=== PATIENT | female | born 1955 | race Caucasian/White ===

== ENCOUNTER 2021-03-09 12:01 | Emergency (ER) | payer OTHER, SELFPAY ==
--- NOTE | 2021-03-09 12:15 | XR_ITS ---
PROCEDURE: XR FOOT LT MIN 3V CLINICAL INDICATION: blisters COMPARISON: No exams were available for comparison FINDINGS: No fracture or dislocation. No lytic or blastic change. There is normal mineralization. The joint spaces are well-preserved. No significant degenerative/arthritic changes. No erosive changes evident. Diffuse soft tissue swelling along the anterior aspect of the foot. No soft tissue gas or radiopaque foreign body IMPRESSION: Soft tissue swelling otherwise negative Dictated by: Bert Nowak MD 03/09/2021 15:46 Bert Nowak MD in [place] 03/09/2021 15:46
--- NOTE | 2021-03-09 12:15 | XR_ITS ---
PROCEDURE: XR FOOT RT MIN 3V CLINICAL INDICATION: blisters COMPARISON: CR XR FOOT LT MIN 3V from 03/09/2021 FINDINGS: No fracture or dislocation. No lytic or blastic change. There is normal mineralization. The joint spaces are well-preserved. No significant degenerative/arthritic changes. No erosive changes evident. Other findings:diffuse soft tissue swelling along the anterior aspect of the foot. No radiopaque foreign body IMPRESSION: Soft tissue swelling otherwise negative Dictated by: Bert Nowak MD 03/09/2021 15:44 Bert Nowak MD in [place] 03/09/2021 15:44
--- NOTE | 2021-03-09 12:16 | XR_ITS ---
PROCEDURE: XR TIBIA FIBULA LT 2V CLINICAL INDICATION: blisters COMPARISON: No exams were available for comparison FINDINGS: No fracture or dislocation. No lytic or blastic change. There is normal mineralization. The joint spaces are well-preserved. No significant degenerative/arthritic changes. No erosive changes evident. Mild diffuse subcutaneous edema with soft tissue swelling noted at the lateral malleolar region. Overlying artifact along posterior aspect of the tib fib on the lateral view IMPRESSION: Soft tissue swelling otherwise negative Dictated by: Bert Nowak MD 03/09/2021 15:45 Bert Nowak MD in [place] 03/09/2021 15:45
--- NOTE | 2021-03-09 12:16 | XR_ITS ---
PROCEDURE: XR TIBIA FIBULA RT 2V CLINICAL INDICATION: blisters COMPARISON: CR XR TIBIA FIBULA LT 2V from 03/09/2021 FINDINGS: No fracture or dislocation. No lytic or blastic change. There is normal mineralization. Soft tissue swelling and edema noted about the entire tib fib subcutaneous tissues with greater soft tissue swelling at the lateral malleolar region. Vague heart-shaped lucency noted distal to the tip of the lateral malleolus. Etiology is indeterminate not readily apparent on the lateral view. Not typical appearance for soft tissue gas. Please correlate with physical exam. Other findings:None. IMPRESSION: No acute bony finding. Subcutaneous edema with greater soft tissue swelling at the lateral malleolar region and curious heart shaped lucency distal to the tip of the lateral malleolus not typical for soft tissue gas however that entity is not excluded. Please correlate with physical exam. No radiopaque foreign body. Dictated by: Bert Nowak MD 03/09/2021 15:42 Bert Nowak MD in [place] 03/09/2021 15:42
[2021-03-09 12:30] VITALS: BP 147/67; PULSE 85; RESP 18; TEMP 36.5; O2SAT 87; BMI 32.9
[2021-03-09 14:06] LABS: Basophils # 0.1 K/mm3 (0-0.2); Basophils % 0.9 % (0.1-2.0); Eosinophils # 0.1 K/mm3 (0.0-0.4); Eosinophils % 1.4 % (0.1-12.0); Hematocrit 56.2 % (37.0-47.0); Hemoglobin 16.7 g/dL (12.2-16.2); Lymphocytes # 0.9 K/mm3 (0.7-4.5); Lymphocytes % 12.4 % (10-50); Mean Corpuscular HGB Conc 29.8 g/dL (31.8-35.4); Mean Corpuscular Hemoglobin 25.5 pg (27.0-31.2); Mean Corpuscular Volume 85.8 fl (81-99); Mean Platelet Volume 8.3 fl (7.4-10.4); Monocytes # 0.4 K/mm3 (0.1-1.0); Monocytes % 5.6 % (1.7-9.3); Neutrophils # 5.8 K/mm3 (1.8-7.8); Neutrophils % 79.7 % (37.0-80.0); Platelet Count 201 K/mm3 (142-424); Red Blood Count 6.54 M/mm3 (4.20-5.40); Red Cell Distribution Width 16.7 % (11.5-17.5); White Blood Count 7.2 K/mm3 (4.8-10.8)
[2021-03-09 14:12] LABS: Chloride 100 mmol/L (98-107); Potassium 4.5 mmoL/L (3.5-5.1); Sodium 139 mmol/L (136-145)
[2021-03-09 14:15] LABS: Alanine Aminotransferase 27 U/L (12-78); Albumin Level 3.2 g/dl (3.5-5.0); Albumin/Globulin Ratio 1.2 (1.1-1.8); Alkaline Phosphatase 106 U/L (38-126); Aspartate Amino Transferase 72 U/L (14-36); Bilirubin,Total 0.8 mg/dl (0.2-1.3); Blood Urea Nitrogen 10 mg/dl (7-17); Calcium 8.8 mg/dl (8.4-10.2); Carbon Dioxide 39 mmol/L (22.0-30.0); Creatinine Clearance Estimated 74 mL/min (50-200); Estimated Glomerular Filt Rate 85 ml/min (>60); GFR (African American) 102 ML/MIN (>60); Globulin 2.7 g/dL (1.3-3.2); Glucose 93 mg/dl (74-100); Total Protein,Serum 5.9 g/dl (6.3-8.2)
[2021-03-09 14:17] LABS: Anion Gap 4.5 mEq/L (5-15)
[2021-03-09 14:21] LABS: C-Reactive Protein 3.3 mg/L (0-4)
[2021-03-09 14:37] LABS: Erythrocyte Sedimentation Rate 1 mm/hr (0-30)
--- NOTE | 2021-03-09 16:19 | HMH.EDLOEX ---
ED Disposition Clinical Impression: Venous insufficiency Disposition: Home, Self-Care Condition on Discharge: Good Instructions: Venous Insufficiency (Alternative Therapy) Additional Instructions: Please follow up with your primary care physician in 2-3 days for further management. You will be called by wound clinic to help set up appointment. You will also be called by Pt/OT, you have an appointment set for SatMar 14 at 8am, you will be called the day before to confirm appointment. Please elevate your feet and continue to keep your wounds clean and dry. Please changes dressing twice a day if possible with bacitracin and kerlex. Please return if worsening symptoms such as odor, purulent white drainage, fevers or any other concerning symptoms. Prescriptions: Bacitracin 5,000,000 unit MC BID #1 each Prescription Printed Referrals: Hadley Tamez MD [Primary Care Provider] - Time of Disposition: 18:15 - Critical Care Critical Care Time: No Attestation: On 03/09/21, the high probability of a clinically significant, sudden or life threatening deterioration of the following system(s) required my full and direct attention, intervention and personal management. The time I documented below is in addition to time spent performing reported procedures but includes the following listed in this critical care notation. Medical Decision Making - Medical Records Medical records reviewed: Yes: I reviewed the patient's medical records. - Markos Inquiry Pt receiving controlled substance: No Vital Signs: 03/09/21 12:30 03/09/21 18:02 Temperature 97.7 F 98.3 F Temperature Source Oral Oral Pulse Rate 77 Pulse Rate [Right Radial] 85 Respiratory Rate 18 18 Blood Pressure 151/86 H Blood Pressure [Right Arm] 147/67 H Blood Pressure Mean [Right Arm] 93 Blood Pressure Source Automatic Cuff Blood Pressure Source [Right Arm] Automatic Cuff Blood Pressure Position Supine Blood Pressure Position [Right Arm] Supine 02 Sat by Pulse Oximetry 87 L Oxygen Delivery Method Nasal Cannula Room Air Oxygen Flow Rate (LPM) 3 - Lab Data Lab results reviewed: Yes: I reviewed the patient's lab results. Lab Results 03/09/21 13:54: WBC 7.2, RBC 6.54 H, Hgb 16.7 H, Hct 56.2 H, MCV 85.8, MCH 25.5 L, MCHC 29.8 L, RDW 16.7, Plt Count 201, MPV 8.3, Neut % (Auto) 79.7, Lymph % (Auto) 12.4, [place] % (Auto) 5.6, Eos % (Auto) 1.4, Baso % (Auto) 0.9, Neut # (Auto) 5.8, Lymph # (Auto) 0.9, [place] # (Auto) 0.4, Eos # (Auto) 0.1, Baso # (Auto) 0.1, ESR 1 03/09/21 13:54: Sodium 139, Potassium 4.5, Chloride 100, Carbon Dioxide 39 H, Anion Gap 4.5 L, BUN 10, Creatinine 0.70, Estimated Creat Clear 74, Estimated GFR 85, Est GFR ( Amer) 102, Glucose 93, Calcium 8.8, Total Bilirubin 0.8, AST 72 H, ALT 27, Alkaline Phosphatase 106, C-Reactive Protein 3.3, Total Protein 5.9 L, Albumin 3.2 L, Globulin 2.7, Albumin/Globulin Ratio 1.2 Result diagrams: 03/09/21 13:54 03/09/21 13:54 Orders (Tests/Meds): ED MEDICATIONS Discontinued Medications Generic Name Dose Route Start Last Admin Trade Name Freq PRN Reason Stop Dose Admin Acetaminophen 1,000 mg 03/09/21 12:16 03/09/21 13:26 Acetaminophen 500mg Tab PO 03/09/21 12:17 1,000 mg ONCE ONE Administration Medical Decision Narrative: Miss Elizabeth is a 65 yo female w/ multiple comorbidities who presents to the ED for bilateral feet blisters for 3 weeks. Patient is afebrile and hemodynamically stable. Patient is non toxic appearing. Patient has large boils on foot which have burst. Underlyining skin does not appear infected. Differentials to consider but not limited to include: Osteomyelitis, staph infection, venous insufficiency, chilblains, yadav bite. XR of the bilateral feet and tib/fib are remarkable for no acute osseous findings, small amount of soft tissue gas which is consistent w/ the wound being open. No crepitus on exam and wounds do not appear acutely infected. Basic labs, ESR and C
--- NOTE | 2021-03-09 17:31 | PC.NURSE ---
Food tray was brought from dietary and given to patient
[2021-03-09 18:02] VITALS: BP 151/86; PULSE 77; RESP 18; TEMP 36.8; O2SAT 91
== END 2021-03-09 18:02 | disposition home or self-care (01) ==
PROVIDERS: Emergency Provider Student in an Organized Health Care Education/Training Program; PCP Family Medicine
DX: I87.2 Venous insufficiency (chronic) (peripheral) (principal)
CPT/HCPCS: 73590; 73630; 80053; 85025; 85651; 86140; 99282

== ENCOUNTER 2021-03-29 13:56 | Emergency (ER) | payer OTHER, SELFPAY ==
[2021-03-29 14:32] VITALS: BP 161/80; O2SAT 94
[2021-03-29 14:34] VITALS: BP 132/37; PULSE 90; O2SAT 94
[2021-03-29 14:36] VITALS: BP 132/67; PULSE 87; RESP 18; O2SAT 95; BMI 36.6
--- NOTE | 2021-03-29 14:41 | HMH.EDGENADL ---
ED Disposition Clinical Impression: Wound of foot Disposition: Home, Self-Care Condition on Discharge: Fair Referrals: Hadley Tamez MD [Primary Care Provider] - Nanette Hall DPM [Staff Physician] - - Critical Care Critical Care Time: No Attestation: On 03/29/21, the high probability of a clinically significant, sudden or life threatening deterioration of the following system(s) required my full and direct attention, intervention and personal management. The time I documented below is in addition to time spent performing reported procedures but includes the following listed in this critical care notation. Medical Decision Making - Medical Records Medical records reviewed: Yes: I reviewed the patient's medical records. - Markos Inquiry Pt receiving controlled substance: No Vital Signs: 03/29/21 14:32 03/29/21 14:34 03/29/21 14:36 Temperature Temperature Source Pulse Rate 90 Pulse Rate [Right Brachial] 87 Respiratory Rate 18 Blood Pressure 161/80 H 132/37 L Blood Pressure [Right Arm] 132/67 Blood Pressure Mean 118 68 Blood Pressure Mean [Right Arm] 88 Blood Pressure Source Blood Pressure Source [Right Arm] Automatic Cuff Blood Pressure Position Blood Pressure Position [Right Arm] Sitting 02 Sat by Pulse Oximetry 94 L 94 L 95 Oxygen Delivery Method Room Air 03/29/21 15:00 03/29/21 15:30 03/29/21 18:06 Temperature 98.3 F Temperature Source Oral Pulse Rate 90 89 80 Pulse Rate [Right Brachial] Respiratory Rate 16 Blood Pressure 113/51 L 119/48 L 120/52 L Blood Pressure [Right Arm] Blood Pressure Mean 71 71 Blood Pressure Mean [Right Arm] Blood Pressure Source Automatic Cuff Blood Pressure Source [Right Arm] Blood Pressure Position Sitting Blood Pressure Position [Right Arm] 02 Sat by Pulse Oximetry 94 L 96 Oxygen Delivery Method Room Air - Lab Data Lab results reviewed: Yes: I reviewed the patient's lab results. Lab Results 03/29/21 15:50: WBC 7.2, RBC 6.92 H, Hgb 18.4 H, Hct 58.5 H, MCV 84.6, MCH 26.5 L, MCHC 31.4 L, RDW 18.2 H, Plt Count 191, MPV 8.5, Neut % (Auto) 78.2, Lymph % (Auto) 13.0, [place] % (Auto) 4.5, Eos % (Auto) 2.2, Baso % (Auto) 2.1 H, Neut # (Auto) 5.6, Lymph # (Auto) 0.9, [place] # (Auto) 0.3, Eos # (Auto) 0.2, Baso # (Auto) 0.2, Total Counted 100, Neutrophils % (Manual) 80 H, Lymphocytes % (Manual) 14, Monocytes % (Manual) 4, Eosinophils % (Manual) 2, Platelet Estimate Normal, Spherocytes 2+, Stomatocytes 1+, ESR 1 03/29/21 15:50: Sodium 139, Potassium 4.2, Chloride 99, Carbon Dioxide 36 H, Anion Gap 8.2, BUN 18 H, Creatinine 0.80, Estimated Creat Clear 82, Estimated GFR 72, Est GFR ( Amer) 88, Glucose 99, Calcium 9.4, Total Bilirubin 0.4, AST 31, ALT 19, Alkaline Phosphatase 85, C-Reactive Protein 9.6 H, Total Protein 6.8, Albumin 3.7, Globulin 3.1, Albumin/Globulin Ratio 1.2 Result diagrams: 03/29/21 15:50 03/29/21 15:50 Orders (Tests/Meds): ED MEDICATIONS Discontinued Medications Generic Name Dose Route Start Last Admin Trade Name Freq PRN Reason Stop Dose Admin Ibuprofen 400 mg 03/29/21 17:32 03/29/21 17:51 Ibuprofen 400 Mg Tablet PO 03/29/21 17:33 400 mg ONCE ONE Administration Medical Decision Narrative: Patient is a 65-year-old female presenting to the emergency department with chief complaint of lower extremity swelling and edema. Differential diagnosis includes chilblains, abscess, cellulitis, trench foot, others. Given this plan order CBC, CMP ESR and CRP. Previous providers note was reviewed, patient does not have any significant increase in inflammatory markers. Patient does state that she has had improvement in her overall lower extremity swelling however she continues to have pain and remains concerned about the amount of swelling. Discussed patient with Dr. Hall who had her accounting manager assistant controller take pictures, Dr. Hall reviewed the pictures and she will follow-up with Dr. Ball in her
[2021-03-29 15:00] VITALS: BP 113/51; PULSE 90; O2SAT 94
[2021-03-29 15:30] VITALS: BP 119/48; PULSE 89; O2SAT 96
--- NOTE | 2021-03-29 15:58 | PC.NURSE ---
spoke with Amina in Dr Ball's office she came over and took pics of feet and is gonna get with Dr ball
--- NOTE | 2021-03-29 15:59 | PC.NURSE ---
lab called for blood drawl
[2021-03-29 16:08] LABS: MANUAL DIFFERENTIAL MANUAL DIFFERENTIAL (MANUAL DIFF)
[2021-03-29 16:10] LABS: Mean Platelet Volume 8.5 fl (7.4-10.4)
[2021-03-29 16:15] LABS: Basophils # 0.2 K/mm3 (0-0.2); Basophils % 2.1 % (0.1-2.0); Eosinophils # 0.2 K/mm3 (0.0-0.4); Eosinophils % 2.2 % (0.1-12.0); Hematocrit 58.5 % (37.0-47.0); Lymphocytes # 0.9 K/mm3 (0.7-4.5); Mean Corpuscular HGB Conc 31.4 g/dL (31.8-35.4); Mean Corpuscular Hemoglobin 26.5 pg (27.0-31.2); Mean Corpuscular Volume 84.6 fl (81-99); Monocytes # 0.3 K/mm3 (0.1-1.0); Monocytes % 4.5 % (1.7-9.3); Neutrophils # 5.6 K/mm3 (1.8-7.8); Neutrophils % 78.2 % (37.0-80.0); Platelet Count 191 K/mm3 (142-424); Red Blood Count 6.92 M/mm3 (4.20-5.40); Red Cell Distribution Width 18.2 % (11.5-17.5); White Blood Count 7.2 K/mm3 (4.8-10.8)
[2021-03-29 16:16] LABS: Chloride 99 mmol/L (98-107)
[2021-03-29 16:17] LABS: Hemoglobin 18.4 g/dL (12.2-16.2); Potassium 4.2 mmoL/L (3.5-5.1); Sodium 139 mmol/L (136-145)
[2021-03-29 16:19] LABS: Alanine Aminotransferase 19 U/L (12-78); Aspartate Amino Transferase 31 U/L (14-36); Blood Urea Nitrogen 18 mg/dl (7-17); Creatinine Clearance Estimated 82 mL/min (50-200); Estimated Glomerular Filt Rate 72 ml/min (>60); GFR (African American) 88 ML/MIN (>60)
[2021-03-29 16:20] LABS: Albumin Level 3.7 g/dl (3.5-5.0); Albumin/Globulin Ratio 1.2 (1.1-1.8); Alkaline Phosphatase 85 U/L (38-126); Anion Gap 8.2 mEq/L (5-15); Bilirubin,Total 0.4 mg/dl (0.2-1.3); Calcium 9.4 mg/dl (8.4-10.2); Carbon Dioxide 36 mmol/L (22.0-30.0); Globulin 3.1 g/dL (1.3-3.2); Glucose 99 mg/dl (74-100); Total Protein,Serum 6.8 g/dl (6.3-8.2)
[2021-03-29 16:25] LABS: C-Reactive Protein 9.6 mg/L (0-4)
--- NOTE | 2021-03-29 16:25 | XR_ITS ---
PROCEDURE INFORMATION: Exam: XR Right Foot Complete; Alignment Exam date and time: 03/29/2021 4:25 PM Age: 65 years old Clinical indication: Edema; Location not specified; Additional info: Weight bearing or simulated TECHNIQUE: Imaging protocol: XR Right foot. Views: 3 or more views. COMPARISON: CR XR FOOT RT MIN 3V 03/09/2021 12:22 PM FINDINGS: Bones/joints: Small enthesophytes involving the calcaneus at the plantar fascia and Achilles tendon insertions. Small marginal osteophytes and degenerative changes involving the 1st MTP joint. Soft tissues: Significant soft tissue swelling of the foot and ankle greater than prior exam. IMPRESSION: 1. Significant soft tissue swelling of the foot and ankle greater than prior exam. 2. Small enthesophytes involving the calcaneus at the plantar fascia and Achilles tendon insertions. 3. Small marginal osteophytes and degenerative changes involving the 1st MTP joint.
--- NOTE | 2021-03-29 16:25 | XR_ITS ---
PROCEDURE INFORMATION: Exam: XR Left Foot Complete; Alignment Exam date and time: 03/29/2021 4:25 PM Age: 65 years old Clinical indication: Edema; Location not specified TECHNIQUE: Imaging protocol: XR Left foot. Views: 3 or more views. COMPARISON: CR XR FOOT LT MIN 3V 03/09/2021 12:21 PM FINDINGS: Bones/joints: Small enthesophytes involving the calcaneus at the plantar fascia and Achilles tendon insertions. Soft tissues: Significant soft tissue swelling of the foot and ankle greater than prior exam. Other findings: . . IMPRESSION: 1. Significant soft tissue swelling of the foot and ankle greater than prior exam. 2. Small enthesophytes involving the calcaneus at the plantar fascia and Achilles tendon insertions.
--- NOTE | 2021-03-29 16:26 | PC.NURSE ---
spoke with Amina they are waiting on labs and they are gonna contact pt for a appt , she requested foot films
[2021-03-29 16:33] LABS: Eosinophils % 2 % (0-3); Lymphocytes % 14 % (10-50); Monocytes % 4 % (2-9); Neutrophils % 80 % (42-76); Platelet Estimate Normal; Total Cells Counted 100
[2021-03-29 16:34] LABS: Spherocytes 2+; Stomatocytes 1+
[2021-03-29 16:43] LABS: Erythrocyte Sedimentation Rate 1 mm/hr (0-30)
[2021-03-29 18:06] VITALS: BP 120/52; PULSE 80; RESP 16; TEMP 36.8; O2SAT 96
== END 2021-03-29 18:07 | disposition home or self-care (01) ==
PROVIDERS: Emergency Provider Emergency Medicine; PCP Family Medicine
DX: M79.89 Other specified soft tissue disorders (principal); S91.302A Unspecified open wound, left foot, initial encounter; S91.301A Unspecified open wound, right foot, initial encounter; X58.XXXA Exposure to other specified factors, initial encounter
CPT/HCPCS: 36415; 73630; 80053; 85007; 85014; 85018; 85048; 85049; 85651; 86140; 99282

== ENCOUNTER → 2021-04-10 16:34 | Outpatient (CLI) | payer OTHER, SELFPAY ==
[2021-04-10 17:03] LABS: Coronavirus 19, PCR Not Detected (NotDetected); Influenza A, PCR Not Detected (NotDetected); Influenza B, PCR Not Detected (NotDetected)
--- NOTE | 2021-04-10 17:21 | ECG_ITS ---
APPROVED REPORT Exam: Resting ECG HR:88 bpm ECG Measurements Heart Rate 88 AXES CA 130 P 83 QRSd 123 QRS 137 QT 363 T 47 QTc 408 Conclusion SINUS RHYTHM POSSIBLE RIGHT VENTRICULAR HYPERTROPHY [SOME/ALL OF: PROMINENT R IN V1, LATE TRANSITION, RAD, RODY, SSS] POSSIBLE ANTERIOR MYOCARDIAL INFARCTION , OF INDETERMINATE AGE [30 ms Q WAVE IN V3/V4, OR R < 0.2 mV IN V4] ABNORMAL ECG UNCONFIRMED REPORT Electronically signed by : Hadley Anand MD 04/11/2021 16:28:20
[2021-04-10 17:52] LABS: Basophils # 0.1 K/mm3 (0-0.2); Eosinophils # 0.2 K/mm3 (0.0-0.4); Eosinophils % 1.8 % (0.1-12.0); Hematocrit 58.8 % (37.0-47.0); Lymphocytes # 1.1 K/mm3 (0.7-4.5); Lymphocytes % 12.3 % (10-50); Mean Corpuscular HGB Conc 31.3 g/dL (31.8-35.4); Mean Corpuscular Hemoglobin 26.3 pg (27.0-31.2); Mean Platelet Volume 8.6 fl (7.4-10.4); Monocytes # 0.5 K/mm3 (0.1-1.0); Monocytes % 5.3 % (1.7-9.3); Neutrophils # 6.8 K/mm3 (1.8-7.8); Neutrophils % 79.6 % (37.0-80.0); Platelet Count 275 K/mm3 (142-424); Red Cell Distribution Width 18.6 % (11.5-17.5); White Blood Count 8.5 K/mm3 (4.8-10.8)
[2021-04-10 19:01] LABS: Chloride 98 mmol/L (98-107); Potassium 4.2 mmoL/L (3.5-5.1); Sodium 134 mmol/L (136-145)
[2021-04-10 19:04] LABS: Alanine Aminotransferase 16 U/L (12-78); Albumin Level 3.8 g/dl (3.5-5.0); Albumin/Globulin Ratio 1.3 (1.1-1.8); Alkaline Phosphatase 97 U/L (38-126); Anion Gap 13.2 mEq/L (5-15); Aspartate Amino Transferase 27 U/L (14-36); Bilirubin,Total 0.6 mg/dl (0.2-1.3); Blood Urea Nitrogen 33 mg/dl (7-17); Carbon Dioxide 27 mmol/L (22.0-30.0); Estimated Glomerular Filt Rate 56 ml/min (>60); GFR (African American) 68 ML/MIN (>60); Globulin 2.9 g/dL (1.3-3.2); Total Protein,Serum 6.7 g/dl (6.3-8.2)
[2021-04-10 19:05] LABS: Calcium 9.1 mg/dl (8.4-10.2); Glucose 94 mg/dl (74-100)
[2021-04-10 19:09] LABS: C-Reactive Protein 19.5 mg/L (0-4)
[2021-04-10 19:27] LABS: Erythrocyte Sedimentation Rate 1 mm/hr (0-30)
[2021-04-10 23:42] LABS: Hemoglobin 18.6 g/dL (12.2-16.2)
== END ==
PROVIDERS: PCP Family Medicine; Visit Provider Podiatrist
DX: Z01.812 Encounter for preprocedural laboratory examination (principal); Z11.52 Encounter for screening for COVID-19; L03.116 Cellulitis of left lower limb; Z51.89 Encounter for other specified aftercare; L03.115 Cellulitis of right lower limb
CPT/HCPCS: 36415; 80053; 85025; 85651; 86140; 87070; 87077; 87186; 87205; 93005; C9803; U0003; U0005

== ENCOUNTER 2021-04-12 05:54 | Day surgery (SDC) | payer OTHER, SELFPAY ==
[2021-04-12] VITALS (12 sets, daily range): BP systolic 111–154; BP diastolic 53–78; PULSE 83–93; RESP 12–18; TEMP 36.1–43; O2SAT 92–97; BMI 28.3
--- NOTE | 2021-04-12 08:36 | P.PN_ITS ---
[facility] Anesthesia Checklist - Structural Data Admitted From: Home Planned Operative Procedure/s: i/d bilat feet Consent for Planned Operative Procedure(s) Verified: Yes - Additional verifications Anesthesia Reactions: Yes (difficulty sedating) Hx Blood Transfusions: No Blood Transfusion Reaction: No - Airway Assessment C-Spine Mobility Assessed: Yes TMJ Mobility Assessed: Yes Dentition: Poor Dentition - Neurological Assessment Level of Consciousness: Awake, Alert, Appropriate - Anesthesia Plan Anesthesia Risk discussed: Yes Anesthesia Plan: Verified ASA Class: II Anesthesia Type: General [facility] History I have reviewed the patient's past medical history: Yes Medical History: Denies:: Cancer, Coronary Artery Disease, Diabetes Mellitus Type 1, Diabetes Mellitus Type 2, MRSA, Seizures *Have you ever received a pneumonia vaccine?: No *Have you received a flu vaccine this season?: No Other Medical History: Denies: Blood Transfusion Reaction Anesthesia experience/problems:: none Other Surgeries: Yes: Hysterectomy-Total Amputation: No Fractures: No - *Social History Last grade of school completed: GED Smoking Status: Never smoker Alcohol Intake: never Alcohol Intake Frequency:: 0-2 drinks per day Substance Use Type: denies use *Occupational Status:: employed ([employer]) *Travel in the last 8 weeks: None Family Hx:: Non-contributory
--- NOTE | 2021-04-12 09:51 | P.PN_ITS ---
[facility] Anesthesia Record Part I Intake, IV Amount: 1,200 Estimated blood loss (mL): 0 Urine output (mL): 0 Blood Pressure: 129/71 SaO2: 95 Pulse Rate: 89 Respiratory Rate: 12 Temperature: 98.8 F Patient is:: Awake, Stable Stable to PACU at:: 09:50
--- NOTE | 2021-04-12 10:13 | HMH.OPNOTE ---
Date of procedure: 04/12/21 Pre-op Diagnosis:: 1. Left foot open wound 2. Right foot open wound 3. B/L ankle wound 4. Bilateral lower leg cellulitis 5. Venous insufficiency 6. Lymphedema of both lower extremities 7. Bilateral lower extremity pain 8. Overweight Post-op Diagnosis:: Same Procedure performed:: 1. B/L dorsal foot wound debridement 2. B/L dorsal foot incision and drainage 3. B/L ankle wound debridement 4. B/L foot soft tissue biopsy 5. Nail debridement x10 6. Application of LINA drain Surgeon:: Nanette Hall DPM BEHAVIORAL HEALTH DIRECTOR:: Eliseo Mendoza Anesthesia: GETA, local (30cc 0.5% marcaine plain) Estimated blood loss (mL): 30 Clinical Note:: Patient is a non-DM 65F who presents with b/l LE edema, cellulitis and b/l LE open wounds. Saw her PCP team, Kasia Perez in Feb 2021. She was referred to wound care but rescheduled the appt several times. She went to [facility] 03/29/21 and they sent her directly to ER for further evaluation. Patient was sent home from ER. She is not currently on abx. She was given appt for Podiatry but has rescheduled/been unable to make them. New images, labs were discussed with the patient. We discussed conservative versus surgical treatment options. We discussed conservative care including continued oral vs IV antibiotics and local wound care versus surgical incision and drainage. Patient understands that they could have wound healing complications including delayed healing and infection. We discussed that if the wound does not heal, it is possible that they may need further debridement. Patient understands if infection spreads into the bone, it may warrant proximal amputation and could result in further loss of digits, loss of partial foot or loss of leg. We discussed the risks and benefits in great detail. Other surgical risks include: prolonged pain and swelling, further infection requiring oral or IV antibiotics, delay in healing of soft tissue or bone, nerve or blood vessel damage, CRPS/RSD, DVT, anesthesia complications, and even . All questions answered. Patient verbalized understanding. Consent obtained. Pre-op labs, ekg, covid test ordered. Operative findings:: B/L LE edema and erythema noted. There are multiple open wounds and blistering skin sloughing noted to both feet. The right dorsal foot, left dorsal foot, lateral ankle and heel. All wounds were sharply excisionally debrided with sharp 15' blade, forceps and curette thru skin into/including subq tissue. There was no kiana purulence. Clear drainage noted from all wounds, consistent with lymphatic drainage. Left dorsal foot ulcer, wound culture taken. Right foot dorsal tissue was gangrenous necrotic tissue with no underlying deep opening noted. All slough, biofilm and non-viable soft tissue removed. Left and right midfoot tissue debrided and sent for tissue culture and pathology specimen. Post debridement: no purulence or maldodor noted. No obvious infection tracking up the tendons. Significant amount off lymphatic serous fluid noted. 1) Right dorsal midfoot: thru skin, subq, into/including deep fascia tissue, exposed extensor tendon, 6.1 x 7 x 3cm, 100% granular 2) Right anterior medial ankle: thru skin into/including subq tissue, 0.4 x 0.4 x 0.0cm, 100% granular 3) Right anterior lateral ankle: thru skin into/including subq tissue, 0.3 x 0.3 x 1cm, 100% granular 4) Right anterior ankle: thru skin into/including subq tissue, 1.2 x 0.2 x 1cm, 100% granular 5) Left dorsal midfoot wound: thru skin, subq, into/including deep fascia tissue, exposed extensor tendons, did not probe to underlying metatarsal bones, 6.1 x 7 x 3cm, 100% granular 6) Left hallux 1st MPJ wound: thru skin only, 2 x 0.3 x 0cm, 100% granular 7) Left dorsal medial midfoot: thru skin into/including subq tissue, 3 x 3 x 1.5cm, 100% granular 8) Left dorsal medial ankle: thru skin into/including subq tissue, 2 x 2 x 2cm, 100% granular 9) Left posterior ankle wound: thru skin, subq, into/including deep fascia over a
--- NOTE | 2021-04-12 10:25 | SUR.PHASEI ---
1021- detailed report given to lew danielle in post op at this time. Pt left in stable condition
--- NOTE | 2021-04-12 10:28 | SUR.OPER ---
0940- family updated of current status via lew fay in pre op at this time
--- NOTE | 2021-04-13 10:28 | P.PN_ITS ---
[facility] Anesthesia Record Part II Discharge Time: 10:20 Destination: Surgical Day Care (OP Surgery) PACU nurse assessment reviewed?: Yes Patient Condition:: Good Anesthesia Complications:: None Swallowing reflex intact?: Yes Cyanosis?: No Blood Pressure: 125/67 Pulse Rate: 89 Temperature: 98.7 F Mental Status: Alert & Oriented Pain level:: 0 Nausea and/or vomitting:: None Intake, IV Amount: 0
[2021-04-13 10:29] VITALS: BP 125/67; PULSE 89; TEMP 37.1
== END 2021-04-12 12:00 | disposition home or self-care (01) ==
PROVIDERS: PCP Family Medicine; Visit Provider Podiatrist
PROC: (CPT 11043; principal; 2021-04-12 07:30)
DX: S81.801A Unspecified open wound, right lower leg, initial encounter (principal); S81.802A Unspecified open wound, left lower leg, initial encounter; L03.116 Cellulitis of left lower limb; L03.115 Cellulitis of right lower limb; S91.301A Unspecified open wound, right foot, initial encounter; S91.302A Unspecified open wound, left foot, initial encounter; I87.2 Venous insufficiency (chronic) (peripheral); I89.0 Lymphedema, not elsewhere classified; M79.604 Pain in right leg; M79.605 Pain in left leg; Z79.899 Other long term (current) drug therapy; I96 Gangrene, not elsewhere classified; B96.1 Klebsiella pneumoniae [K. pneumoniae] as the cause of diseases classified elsewhere; B95.62 Methicillin resistant Staphylococcus aureus infection as the cause of diseases classified elsewhere; B95.7 Other staphylococcus as the cause of diseases classified elsewhere; B96.5 Pseudomonas (aeruginosa) (mallei) (pseudomallei) as the cause of diseases classified elsewhere
CPT/HCPCS: 11043; 11046; 11042; 11045; 87070; 87075; 87077; 87186; 87205; 96374; J2405

== ENCOUNTER 2021-05-04 15:00 | Outpatient (RCR) | payer OTHER, SELFPAY ==
--- NOTE | 2021-04-20 16:29 | HMH.PTOPWND ---
Rehab Outpt Wound Evaluation Rehab OP Wound Evaluation Start: 04/20/21 15:06 Freq: Status: Active Protocol: Document 04/20/21 16:11 GABRIELLE (Rec: 04/20/21 16:28 PHORNE [id number]) Electronically Signed By Preston López, PT 04/20/21 16:11 Subjective/History History History Pt is 65 yowf who presents with multiple B LE wounds to the feet and ankles. She reports the wounds have been present for ~ 2-3 mos overall and she had increased swelling as well. She underwent OR 05/02 for debridement and I&D of B LE wounds and presents now for continued wound care and dressing changes. A LINA drain remains in place on the R foot dorsal surface. She reports significant pain with dressing changes. PMH: DORON. Subjective Subjective She reports pain 9/10 with dressing changes. She presents with 3+ pitting edema to B lower legs from knees distally . Wound Eval Wound Left Lateral Ankle Wound Type Incision Is This a Chronic Wound Yes Wound Length (cm) 5.3 Wound Width (cm) 5.6 Wound Depth (cm) 1.3 Wound Bed Appearance Beefy Red Percentage Granulated (%) 100 Wound Margins Description Well Defined Tunneling Position 2 o'clock Tunneling Depth (cm) 2.4 Surrounding Tissue Appearance Sea Breeze Edema Type Pitting Edema Degree 3+ Query Text:1+ Trace, Barely Detectable, Rebound 15-30 seconds 2+ Moderate, Slight Indentation, Rebound 10-20 seconds 3+ Deep, Deeper Indentation, Rebound > 30 seconds 4+ Very Deep, Rebound > 60 seconds Drainage Description Serosanguineous Drainage Amount Moderate Wound Topical Solution/Irrigant Saline Irrigant Packing Type Gauze Packing Strips Comment iodophor betadine soaked Primary Dressing Composite Comment optifoam gentle border Wound Secondary Dressing Type Gauze Roll/Wrap,Adhering Gauze Roll Wound Debridement Method Forceps,Gauze Wound Debridement Amount of Tissue Minimal Removed Dressing Change Patient Tolerance Tolerat
== END 2021-05-04 15:05 | disposition home or self-care (01) ==
LOC: PT 15:00
PROVIDERS: PCP Family Medicine; Visit Provider Podiatrist
DX: I89.0 Lymphedema, not elsewhere classified (principal); L03.116 Cellulitis of left lower limb; L03.115 Cellulitis of right lower limb; S81.801D Unspecified open wound, right lower leg, subsequent encounter; S81.802D Unspecified open wound, left lower leg, subsequent encounter
CPT/HCPCS: 97140; 97163; 97597; 97598

== ENCOUNTER 2021-05-08 16:02 | Inpatient (IN) | payer OTHER, SELFPAY ==
[2021-05-08] VITALS (10 sets, daily range): BP systolic 117–151; BP diastolic 54–76; PULSE 70–98; RESP 20–26; TEMP 36.6–36.8; O2SAT 50–98; BMI 29.2
--- NOTE | 2021-05-08 | ECG_ITS ---
APPROVED REPORT Exam: Resting ECG HR:91 bpm ECG Measurements Heart Rate 91 AXES VA 136 P 79 QRSd 80 QRS 146 QT 349 T 30 QTc 398 Conclusion SINUS RHYTHM Left atrial abnormality Poor R wave progression, unchanged from prior Low voltage, questionable body habitus issue Electronically signed by : Hadley Anand MD 05/12/2021 16:12:15
--- NOTE | 2021-05-08 16:07 | CT_ITS ---
PROCEDURE INFORMATION: Exam: CTA Chest With Contrast Exam date and time: 05/08/2021 4:07 PM Age: 65 years old Clinical indication: Dyspnea; Additional info: Dyspnea , post op- had surgery recently on foot - still in cast TECHNIQUE: Imaging protocol: Computed tomographic angiography of the chest with contrast. 3D rendering (Not supervised by radiologist): MIP and/or 3D reconstructed images were created by the technologist. Radiation optimization: All CT scans at this facility use at least one of these dose optimization techniques: automated exposure control; mA and/or kV adjustment per patient size (includes targeted exams where dose is matched to clinical indication); or iterative reconstruction. Contrast material: ISOVUE 370; Contrast volume: 70 ml; Contrast route: INTRAVENOUS (IV); COMPARISON: CR XR CHEST PORTABLE 05/08/2021 4:26 PM FINDINGS: Pulmonary arteries: Normal. No pulmonary emboli. Aorta: Unremarkable. No aortic aneurysm. No aortic dissection. Lungs: See Pleural spaces finding. Calcified granuloma right upper lobe likely related to prior granulomatous process. Pleural spaces: Moderate volume bilateral pleural effusions with compressive atelectasis. Heart: Unremarkable. No cardiomegaly. No pericardial effusion. Lymph nodes: Unremarkable. No enlarged lymph nodes. Gallbladder and bile ducts: Dependently layering hyperattenuating 14 mm structure is noted within the gallbladder fossa without wall thickening, or pericholecystic fluid. Bones/joints: Unremarkable. No acute fracture. Soft tissues: Unremarkable. IMPRESSION: 1. Moderate volume bilateral pleural effusions with compressive atelectasis. 2. Cholelithiasis without CT evidence of cholecystitis. 3. No CT angiography evidence of pulmonary embolism.
--- NOTE | 2021-05-08 16:07 | PC.NURSE ---
at bedside when pt arrived. O2 sats were reading between 50-60 on room air. PT was greyish in color with mottling present on hands. PT placed on NRB @ 15lpm and sats increased to 90's. PT advises she is feeling better with the O2.
--- NOTE | 2021-05-08 16:08 | XR_ITS ---
FINAL REPORT CLINICAL HISTORY: dyspnea- sob FINDINGS: SINGLE VIEW CHEST. The heart is enlarged. There is pulmonary vascular congestion. The mediastinum is unremarkable. There is bibasilar atelectasis or pneumonia. There is no pneumothorax. IMPRESSION: Cardiomegaly with pulmonary vascular congestion. Bibasilar atelectasis or pneumonia. Reviewed, Interpreted and Dictated by Diego Lancaster III, MD Transcribed by Sandy Quarles Authenticated by Diego Lancaster III, MD on 05/08/2021 05:01:47 PM [facility]
[2021-05-08 16:18] LABS: Basophils # 0.1 K/mm3 (0-0.2); Basophils % 0.5 % (0.1-2.0); Eosinophils # 0.1 K/mm3 (0.0-0.4); Eosinophils % 0.9 % (0.1-12.0); Hematocrit 56.6 % (37.0-47.0); Hemoglobin 17.4 g/dL (12.2-16.2); Lymphocytes # 1.4 K/mm3 (0.7-4.5); Lymphocytes % 14.6 % (10-50); Mean Corpuscular HGB Conc 30.7 g/dL (31.8-35.4); Mean Corpuscular Hemoglobin 27.6 pg (27.0-31.2); Mean Corpuscular Volume 89.8 fl (81-99); Mean Platelet Volume 9.4 fl (7.4-10.4); Monocytes # 0.5 K/mm3 (0.1-1.0); Monocytes % 4.8 % (1.7-9.3); Neutrophils # 7.8 K/mm3 (1.8-7.8); Neutrophils % 79.2 % (37.0-80.0); Platelet Count 227 K/mm3 (142-424); Red Cell Distribution Width 22.1 % (11.5-17.5); White Blood Count 9.8 K/mm3 (4.8-10.8)
[2021-05-08 16:29] LABS: Alanine Aminotransferase 34 U/L (12-78); Albumin Level 3.7 g/dl (3.5-5.0); Albumin/Globulin Ratio 1.3 (1.1-1.8); Alkaline Phosphatase 131 U/L (38-126); Anion Gap 11.5 mEq/L (5-15); Aspartate Amino Transferase 35 U/L (14-36); Bilirubin,Total 0.7 mg/dl (0.2-1.3); Blood Urea Nitrogen 14 mg/dl (7-17); Calcium 8.9 mg/dl (8.4-10.2); Carbon Dioxide 33 mmol/L (22.0-30.0); Chloride 98 mmol/L (98-107); Creatinine Clearance Estimated 66 mL/min (50-200); Estimated Glomerular Filt Rate 85 ml/min (>60); GFR (African American) 102 ML/MIN (>60); Globulin 2.8 g/dL (1.3-3.2); Glucose 148 mg/dl (74-100); Potassium 4.5 mmoL/L (3.5-5.1); Sodium 138 mmol/L (136-145); Total Protein,Serum 6.5 g/dl (6.3-8.2)
[2021-05-08 16:39] LABS: NT Pro Brain Natriuretic Pep. 11100 pg/mL (0-125)
[2021-05-08 16:42] LABS: Troponin I 0.02 ng/ml (0.00-0.034)
[2021-05-08 16:43] LABS: Coronavirus 19, PCR Not Detected (NotDetected)
[2021-05-08 16:44] LABS: Influenza A, PCR Not Detected (NotDetected); Influenza B, PCR Not Detected (NotDetected)
[2021-05-08] MEDS: IOPAMIDOL-370 (76%);100ML BOTTLE 70 ML IV (17:00)
[2021-05-08] MEDS: 0.9 % SODIUM CHLORIDE 50 ML VIAL IV (17:00)
[2021-05-08] MEDS: SODIUM CHLORIDE 0.9% 10ML SYR (RAD ONLY) 10 ML IV (17:00)
[2021-05-08 17:16] LABS: VBG Base Excess -2.8 mmol/L (-2.4-2.3); VBG Oxygen Saturation 80.5 % (50-70); VBG PH 7.22 mmol/L (7.31-7.41); VBG PO2 50.9 mmol/L (28-40); VBG Total CO2 26.9 mmol/L (23-27)
[2021-05-08 17:19] LABS: VBG PCO2 62.9 mmol/L (35-51)
--- NOTE | 2021-05-08 17:19 | PC.NURSE ---
Took results of VBG. Repeated and verified and notified .
--- NOTE | 2021-05-08 17:36 | HMH.EDSOB ---
ED Disposition Clinical Impression: FIDENCIO (acute kidney injury) Disposition: Admitted as Observation Condition on Discharge: Good Time of Disposition: 19:15 - Critical Care Critical Care Time: No Attestation: On 05/08/21, the high probability of a clinically significant, sudden or life threatening deterioration of the following system(s) required my full and direct attention, intervention and personal management. The time I documented below is in addition to time spent performing reported procedures but includes the following listed in this critical care notation. Medical Decision Making - Medical Records Medical records reviewed: Yes: I reviewed the patient's medical records. - Markos Inquiry Pt receiving controlled substance: No Vital Signs: 05/08/21 16:02 05/08/21 16:32 05/08/21 16:45 Temperature 98 F Temperature Source Oral Pulse Rate 89 87 Pulse Rate [Right] 98 H Respiratory Rate 26 H 24 22 Blood Pressure 148/76 H 140/56 L Blood Pressure [Right Arm] 147/63 H Blood Pressure Mean 92 Blood Pressure Mean [Right Arm] 91 Blood Pressure Source Blood Pressure Source [Right Arm] Automatic Cuff Blood Pressure Position Blood Pressure Position [Right Arm] Sitting 02 Sat by Pulse Oximetry 50 L 92 L 92 L Oxygen Delivery Method Room Air Oxygen Flow Rate (LPM) 05/08/21 17:16 05/08/21 17:30 05/08/21 18:00 Temperature Temperature Source Pulse Rate 86 83 80 Pulse Rate [Right] Respiratory Rate 24 Blood Pressure 149/54 H 151/69 H 148/66 H Blood Pressure [Right Arm] Blood Pressure Mean 96 90 Blood Pressure Mean [Right Arm] Blood Pressure Source Automatic Cuff Blood Pressure Source [Right Arm] Blood Pressure Position Sitting Blood Pressure Position [Right Arm] 02 Sat by Pulse Oximetry 90 L 92 L 91 L Oxygen Delivery Method Non-Rebreather Vapotherm Oxygen Flow Rate (LPM) 15 40 05/08/21 18:12 05/08/21 19:30 Temperature 98.2 F Temperature Source Oral Pulse Rate 80 82 Pulse Rate [Right] Respiratory Rate 22 20 Blood Pressure 148/66 H 117/60 Blood Pressure [Right Arm] Blood Pressure Mean Blood Pressure Mean [Right Arm] Blood Pressure Source Automatic Cuff Automatic Cuff Blood Pressure Source [Right Arm] Blood Pressure Position Sitting Sitting Blood Pressure Position [Right Arm] 02 Sat by Pulse Oximetry 90 L Oxygen Delivery Method Vapotherm Vapotherm Oxygen Flow Rate (LPM) - Lab Data Lab results reviewed: Yes: I reviewed the patient's lab results. Lab Results 05/08/21 16:00: WBC 9.8, RBC 6.30 H, Hgb 17.4 H, Hct 56.6 H, MCV 89.8, MCH 27.6, MCHC 30.7 L, RDW 22.1 H, Plt Count 227, MPV 9.4, Neut % (Auto) 79.2, Lymph % (Auto) 14.6, [place] % (Auto) 4.8, Eos % (Auto) 0.9, Baso % (Auto) 0.5, Neut # (Auto) 7.8, Lymph # (Auto) 1.4, [place] # (Auto) 0.5, Eos # (Auto) 0.1, Baso # (Auto) 0.1 05/08/21 16:00: Sodium 138, Potassium 4.5, Chloride 98, Carbon Dioxide 33 H, Anion Gap 11.5, BUN 14, Creatinine 0.70, Estimated Creat Clear 66, Estimated GFR 85, Est GFR ( Amer) 102, Glucose 148 H, Calcium 8.9, Total Bilirubin 0.7, AST 35, ALT 34, Alkaline Phosphatase 131 H, Troponin I 0.02, Total Protein 6.5, Albumin 3.7, Globulin 2.8, Albumin/Globulin Ratio 1.3 05/08/21 16:00: NT-Pro-B Natriuret Pep 65122 H 05/08/21 16:11: VBG pH 7.22 L, VBG pCO2 62.9 H, VBG pO2 50.9 H, VBG HCO3 25.0, VBG Total CO2 26.9, VBG O2 Saturation 80.5 H, VBG Base Excess -2.8 L 05/08/21 16:34: SARS-CoV-2 (PCR) Not detected, Influenza A Untype (PCR) Not detected, Influenza Type B (PCR) Not detected Result diagrams: 05/08/21 16:00 05/08/21 16:00 Orders (Tests/Meds): ED MEDICATIONS Generic Name Dose Route Start Last Admin Trade Name Freq PRN Reason Stop Dose Admin Acetaminophen 650 mg 05/08/21 19:39 Acetaminophen 325mg Tab PO 06/07/21 19:38 Q4HP PRN Fever or Mild Pain Furosemide 40 mg 05/09/21 03:00 Furosemide 40mg/4ml Vial IV 05/09/21 03:01 ONCE ONE Lorazepam 1 mg 05/08/21 19:39 Lorazepam 2mg/Ml Vial IV 06/07/21 19:38 Q6HP PRN Agitation Sodium Chloride 10 ml 05/08/21 19:39 Sodium Chloride 0.9% 10ml Vial IV 06/07/21 19:38 NEEDED PRN to Dilute Lorazepam inj Discontinued Medications Generic Name Dose Route Start Last Admin Trade Name Freq PRN Reason Stop Dose Admin Furosemide 80 mg 05/08/21 19:39 05/08/21 20:16 Furosemide 100mg/10ml Vial IV 05/08/21 19:40 Not Given ONCE ONE Furosemide 80 mg 05/08/21 19:42 05/08/21 19:44 Furosemide 40mg/4ml Vial IV 05/08/21 19:43 80 mg ONCE ONE Administration Iopamidol 70 ml 05/08/21 16:59 05/08/21 17:00 Iopamidol-370 (76%);100ml Bottle IV 05/08/21 17:00 70 ml ONCE ONE Administration Lorazepam 1 mg 05/08/21 18:17 05/08/21 18:26 Lorazepam 2mg/Ml Vial IV 05/08/21 18:18 1 mg ONCE ONE Administration Sodium Chloride 50 ml 05/08/21 16:59 05/08/21 17:00 0.9 % Sodium Chloride 50 Ml Vial IV 05/08/21 17:00 50 ml ONCE ONE Administration Sodium Chloride 10 ml 05/08/21 16:59 05/08/21 17:00 Sodium Chloride 0.9% 10ml Syr (Rad Only) IV 05/08/21 17:00 10 ml ONCE ONE Administration Sodium Chloride 10 ml 05/08/21 18:17 Sodium Chloride 0.9% 10ml Vial IV 06/07/21 18:16 NEEDED PRN to Dilute Lorazepam inj ORDERS Category Date Time Status Complete Blood Count Auto Diff AMLAB Lab 05/09/21 06:00 Ordered Complete Blood Count Auto Diff AMLAB Lab 05/10/21 06:00 Ordered Complete Blood Count Auto Diff AMLAB Lab 05/11/21 06:00 Ordered Comprehensive Metabolic Panel AMLAB Lab 05/09/21 06:00 Ordered Comprehensive Metabolic Panel AMLAB Lab 05/10/21 06:00 Ordered Comprehensive Metabolic Panel AMLAB Lab 05/11/21 06:00 Ordered Troponin I Q3H Lab 05/08/21 20:16 Received Troponin I Q3H Lab 05/08/21 22:15 Ordered Medical Decision Narrative: Miss Michelle is a 65 yo female w/ multiple comorbidities including chronic foot wounds and recent surgery on right foot who presents to the ED for acute onset dyspnea while at podiatry office today. Patient is satting 50s on RA per nursing. Patient is placed on nasal cannula with improvement to 100%. Patient reports feeling dyspneic but denies chest pain at this time. Physical exam patient appears mottled and has peripheral cyanosis. Differentials to consider include: PE, IL/CAD, CHF/COPD exacerbation. Basic labs, Trop, VBG and BNP are obtained for further evaluation results are remarkable for 7.22 PH and CO2 of 62. BNP 11K. Bedside ECG shows no acute ischemic changes. Bedside CXR shows concern for cardiomegaly and vascular congestion concerning for heart failure. CT PE shows vascular congestion no PE. Patient is given 80mg IV of Lasix for diuresis. Banegas catheter ordered to monitor uop, pending. Patient is placed on BIPAP but can not tolerate, refuses to wear despite risks. Patient is placed on venti mask, but can not tolerate , patient is given 1mg of Ativan which helps patient tolerate mask. Patient able to tolerate will obtain repeat VBG in an hour. Patient is admitted to medicine for further management and aggressive diuresis. Resp/SOB HPI - General Chief Complaint: Shortness of Breath/Dyspnea Stated Complaint: SOA Time Seen by Provider: 05/08/21 16:05 Mode of Arrival: Wheelchair Source of Information: Patient Limitations: No Limitations Description of Symptoms (Recalled from ER Triage Doc. by RN): Pt brought over from podiatry office with c/o SOA and low O2 sats. They advised pt was coming in to be seen for her feet and c/o feeling SOA. PT had low O2 sats in the office and was brought over to ED for further evaul. RA sats were 50% on arrival and pt was fernandez in color with mottled/purple hands, and lips were bluish/fernandez in color. Pt still A&O 3. - History of Present Illness Miss Michelle is a 65 yo female w/ multiple comorbidities including chronic foot wounds who presents to the ED for dyspnea. Patient was brought over from podiatry office c/o SOA and hypoxia. Pt was coming in to be seen for her feet and c/o dyspnea at that time. PT had low O2 sats in the office and was brought over to ED for further eval. RA sats were 50% on arrival and pt was fernandez in color with mottled/purple hands, and lips were bluish/fernandez in color. Pt still A&O 3. Patient denies any LE swelling or pain and reports her wounds in LE have improved. Patient underwent last surgery on right foot 3 weeks prior, but reports no leg pain or calf pain. No hx of clots. No cough, congestion or fevers/chills. - Related Data Home Medications Medication Instructions Recorded Confirmed cetirizine 10 mg capsule 10 mg PO DAILY PRN 04/10/21 04/24/21 fluticasone propionate 50 2 spray INTRANASAL DAILY 04/10/21 04/24/21 mcg/actuation nasal spray,suspension clindamycin HCl 300 mg capsule 300 mg PO cap 04/17/21 04/24/21 levofloxacin 500 mg tablet 500 mg PO tab 04/17/21 04/24/21 Previous Rx's Medication Instructions Recorded ketorolac 10 mg tablet 10 mg PO Q6H PRN 5 Days #20 tab 04/12/21 doxycycline hyclate 100 mg tablet 100 mg PO BID 14 Days #28 tab 04/17/21 levofloxacin 750 mg tablet 750 mg PO DAILY #30 tab 04/17/21 oxycodone-acetaminophen 7.5 mg-325 1 tab PO Q4-6H PRN 7 Days #42 tab 04/17/21 mg tablet Allergies Allergy/AdvReac Type Severity Reaction Status Date / Time codeine Allergy Verified 04/24/21 15:46 Sulfa (Sulfonamide Allergy Verified 04/24/21 15:46 Antibiotics) flu vaccine Allergy Unknown Uncoded 04/11/21 09:49 Neomycin Allergy Unknown Uncoded 02/26/17 14:59 Penicillin Allergy Unknown Uncoded 02/26/17 14:59 Polymyxin B Allergy Unknown Uncoded 02/26/17 14:59 H History - Hepatitis A Screen Drug use history?: No High risk sexual behaviors?: No History of sexually transmitted infection?: No Currently employed?: No Childcare worker?: No Do you have indoor plumbing?: Yes Do you have electricity?: Yes Attestation statement:: This patient has been screened for Hepatitis A risk factors. I have reviewed the patient's past medical history: Yes Medical History: Denies:: Cancer, Coronary Artery Disease, Diabetes Mellitus Type 1, Diabetes Mellitus Type 2, MRSA, Seizures Other Medical History: Reports: Sinus Problems. Denies: Blood Transfusion Reaction Other Surgeries: Yes: Hysterectomy-Total Amputation: No Fractures: No - Social History Smoking Status: Never smoker Alcohol Intake: never Alcohol Intake Frequency:: 0-2 drinks per day Substance Use Type: denies use Occupational Status: disabled Family Hx:: Diabetes, Heart Attack, Cancer, Hypertension, Hyperlipidemia ROS Obtained: Yes All systems reviewed & no additional complaints - Constitutional Constitutional: Reports system reviewed and no additional complaints, except as docu - Eyes Eyes: Reports system reviewed and no additional complaints, except as docu - ENT Ears, Nose, Mouth, and Throat: Reports system reviewed and no additional complaints, except as docu - Cardiovascular Cardiovascular: Reports system reviewed and no additional complaints, except as docu - Respiratory Respiratory: Reports shortness of breath - Gastrointestinal Gastrointestingal: Reports: system reviewed and no additional complaints, except as docu - Neurologic Neurologic: Reports system reviewed and no additional complaints, except as docu Physical Exam - General General appearance: alert, in no apparent distress - Head Head exam: atraumatic - Eye Eye exam: Present: normal appearance, PERRL - ENT ENT exam: Present: normal exam, normal oropharynx - Neck Neck exam: Present: normal inspection, full ROM - Chest Chest inspection: Present: normal inspection - Respiratory Respiratory exam: Present: respiratory distress - Cardiovascular Cardiovascular exam: Present: regular rate, normal rhythm - Abdominal Exam Abdominal exam: Present: soft, normal bowel sounds - Extremities Exam Extremities exam: Present: normal inspection, full ROM - Back Exam Back exam: Present: normal inspection, full ROM - Neurological Exam Neurological exam: Present: alert, oriented X3 - Skin Skin exam: Present: cyanosis, pallor, mottled
--- NOTE | 2021-05-08 17:38 | PC.NURSE ---
Resp at bedside placing pt on bipap at this time
--- NOTE | 2021-05-08 17:38 | PC.NURSE ---
speaking with Dr. Tamez at this time
--- NOTE | 2021-05-08 17:41 | PC.NURSE ---
PT was refusing bipap. Md at bedside, discussing patient condition with her.
--- NOTE | 2021-05-08 17:51 | PC.NURSE ---
Pt refused bipap, advising she can't tolerate it. Willing to try vapotherm. PT verbalizes understanding the risks of refusing bi-pap at this time, even after lengthy discussion with MD explaining risk and benefits. Pt still refusing.
--- NOTE | 2021-05-08 18:15 | PC.NURSE ---
Went in to assess patient, advises she does not want the vapotherm on because it is too much. Notified MD that pt would like the vapotherm removed. MD going to bedside to discuss situation with patient.
--- NOTE | 2021-05-08 18:19 | PC.NURSE ---
After discussion with MD, pt agreeable to attempt vapotherm again. Atvidhi ordered
[2021-05-08] MEDS: LORazepam 2MG/ML VIAL 1 MG IV (18:26)
--- NOTE | 2021-05-08 19:28 | PC.NURSE ---
Called report to Christine. Went in to assess patient and update her on POC. Pt was resting at this time. Pt has been resting with no issues since being medicated.
[2021-05-08] MEDS: FUROSEMIDE 40MG/4ML VIAL 80 MG IV (19:44)
--- NOTE | 2021-05-08 20:13 | PC.NURSE ---
patient up to floor via stretcher @ this time.
[2021-05-08 20:44] LABS: Troponin I 0.03 ng/ml (0.00-0.034)
[2021-05-08 23:40] LABS: Troponin I 0.04 ng/ml (0.00-0.034)
[2021-05-09] VITALS (19 sets, daily range): BP systolic 93–138; BP diastolic 44–90; PULSE 80–100; RESP 16–22; TEMP 36.7–37.8; O2SAT 86–100; BMI 33.4; BMI 33.3
--- NOTE | 2021-05-09 | IR_ITS ---
APPROVED REPORT Patient Location: Inpatient Community Resource Officer: NAVI Arreola RT (R) PROCEDURES Right internal jugular vein access Right heart catheterization Right radial arterial access Left heart catheterization Left ventriculogram Selective coronary angiogram Informed consent was obtained prior to the procedure. COMPLICATIONS NONE Estimated Blood Loss: LESS THAN 10 ML TECHNIQUE One percent lidocaine was used to anesthetize the right anterior aspect of the right wrist. The right radial artery was accessed via the Seldinger technique and a 6 [place]ian hydrophilic sheath was placed in the right radial artery. Following this one percent lidocaine was used to anesthetize the right anterior aspect of the right neck. The right internal jugular vein was accessed via the Seldinger technique and a 7 [place]ian sheath was placed in the right internal jugular vein. Following this an arterial cocktail was administered using 5000U heparin, 2.5 mg verapamil, 1mg Lidocaine and 800mcg nitroglycerin into the right radial sheath. A papa catheter was used to perform left heart catheterization left ventriculogram and selective coronary angiography while a [place]-Yoly catheter was used to perform right heart catheterization. Saturations were obtained in the pulmonary artery and right atrium. At the end of the procedure the arterial sheath was removed good hemostasis was achieved using Traclet band. Patient was transferred to the postop holding area in stable condition for venous sheath removal. ANGIOGRAPHIC RESULTS The left main artery Normal The left anterior descending artery Normal The circumflex artery Nondominant normal The right coronary artery Large dominant normal The AL[place] ventriculogram reveals Small ventricle hyperdynamic at 70% The left ventricular end-diastolic pressure 15 mmHg Right atrial pressure 18 mmHg Right ventricular 95/20 mmHg Pulmonary pressure 95/45 mmHg Pulmonary occlusion pressure 10 mmHg Right atrial saturation 65% Pulmonary artery saturation 63% Femoral artery saturation 86% on high flow oxygen IMPRESSION Normal coronary arteries Hyperdynamic ventricle Severe to critical pulmonary artery hypertension No evidence of intracardiopulmonary shunt Unable to accurately assess [place] cardiac output due to heavy sedation required for procedure and high flow oxygen. Patient was highly combative and had significant difficulty lying supine. PLAN 1. I spoke with Dr. Tylor Barboza at [facility] and asked for possible inpatient transfer for evaluation of the critical pulmonary hypertension. Because of the critical shortage of beds at the [facility] it is unlikely patient can be transferred within the next several days. A more expeditious plan is to discharge patient home on supplemental oxygen providing her oxygen is 90% or above and then have her follow with Dr. Barboza later this week. Dr. Barboza office will make contact with the patient and schedule an outpatient evaluation 2. I discussed this with patient's primary care physician, Dr. Tamez, as well as Dr. Barboza. The plan will be to discharge patient from [facility] with the next day or same day follow-up at the [facility] for evaluation of the severe pulmonary artery hypertension 3. For the time being I would like to hold on anticoagulation therapy as I anticipate the right heart catheterization will be repeated once in [place] Electronically signed by : Yvan Sheehan MD 05/09/2021 14:41:16
--- NOTE | 2021-05-09 01:06 | PC.NURSE ---
Patient arrived on floor with BLE wrapped in ted bandage. This RN removed old bandage, cleaned area with betadine. Applied soaked betadine 4x4s, dry 4x4s wrapped in gauze and ted bandage. Photos taken and in chart.
[2021-05-09] MEDS: FUROSEMIDE 40MG/4ML VIAL 40 MG IV (03:24)
--- NOTE | 2021-05-09 04:51 | PC.NURSE ---
THIS RN SPOKE WITH DAUGHTER, NOLBERTO AT START OF CARE. PER DAUGHTER, PATIENT HAS NO EXTENSIVE MEDICAL HISTORY. HAS ONLY BEEN DIAGNOSED WITH EMPHYSEMA. PATIENT'S DAUGHTER STATED THAT PATIENT HAS REPEATED ON MULTIPLY OCCASIONS THAT SHE DOES NOT WANT A BLOOD TRANSFUSION AT ANY TIME. THIS RN EXPLAINED THAT SHE WILL NEED TO OBTAIN A POA. PATIENT'S DAUGHTER, NOLBERTO VERBALIZED AN UNDERSTANDING. DURING THIS RN SHIFT PATIENT HAS HAD 2700 URINE OUTPUT THUS FAR. VITAL SIGNS WNL. PATIENT RESTED WELL. NO NEW CONCERNS OR COMMENTS AT THIS TIME.
--- NOTE | 2021-05-09 07:20 | HMH.PHAVTE ---
[facility] Pharmacy VTE Monitoring - Patient Demographics Admission date: 05/09/21 Report Date: 05/09/21 Time: 07:20 Allergies/Adverse Reactions: Patient Allergies codeine Allergy (Verified 04/24/21 15:46) Sulfa (Sulfonamide Antibiotics) Allergy (Verified 04/24/21 15:46) flu vaccine Allergy (Unknown, Uncoded 04/11/21 09:49) Neomycin Allergy (Unknown, Uncoded 02/26/17 14:59) Penicillin Allergy (Unknown, Uncoded 02/26/17 14:59) Polymyxin B Allergy (Unknown, Uncoded 02/26/17 14:59) Height: 1.57 m Weight: 82.372 kg Patient Problems: Current Active Problems FIDENCIO (acute kidney injury) (Acute) - VTE Risk Labs: VTE Related Lab Results Hgb 17.4 g/dL (12.2-16.2) H 05/08/21 16:00 Hct 56.6 % (37.0-47.0) H 05/08/21 16:00 Plt Count 227 K/mm3 (142-424) 05/08/21 16:00 BUN 14 mg/dl (7-17) 05/08/21 16:00 Creatinine 0.70 mg/dl (0.52-1.04) 05/08/21 16:00 Estimated Creat Clear 66 mL/min (50-200) 05/08/21 16:00 Was VTE Risk Assessment Performed: Yes VTE Score: 7 VTE Risk Level: Moderate Risk Clinical Trial Participant: No - Prophylaxis VTE Prophylaxis Ordered?: Yes Types of VTE Prophylaxis: TEDS Knee High
--- NOTE | 2021-05-09 07:30 | HMH.HP ---
*Admission Date: 05/08/21 *Chief complaint: Shortness of breath *History of present illness: 65-year-old female was being seen in the podiatry clinic yesterday and a postop follow-up visit when she was noted to be lion in appearance with O2 sats in the 50s. She was wheelchaired to over to the ER for evaluation. Patient was in acute respiratory failure in the ER quickly placed on high flow nasal cannula which improved sats to the 90s. Additional work-up revealed findings of congestive heart failure. CT scan ruled out embolic disease but did show moderate sized pleural effusions. Patient was admitted with a diagnosis of acute congestive heart failure and require a further work-up. Patient herself reports noticing some increasing shortness of breath over the preceding 2 to 3 days otherwise she had been at her baseline level of health. She denies any history of pulmonary or cardiac problems. A family member has told the nurse the patient has been diagnosed with emphysema. Patient admits to smoking a pack of cigarettes a day for at least 20 years and possibly longer as she is not the best historian. As a child she grew up in a home where both parents smoked. She denies any personal history of lung infections. Prior surgeries are hysterectomy and a as well as her recent podiatry procedures. [facility] History I have reviewed the patient's past medical history: Yes Medical History: Denies:: Cancer, Coronary Artery Disease, Diabetes Mellitus Type 1, Diabetes Mellitus Type 2, MRSA, Seizures *Have you ever received a pneumonia vaccine?: No *Have you received a flu vaccine this season?: Yes Other Medical History: Reports: Sinus Problems. Denies: Blood Transfusion Reaction Other Surgeries: Yes: Hysterectomy-Total Amputation: No Fractures: No - *Social History Smoking Status: Former smoker Tobacco Type: cigarettes # Packs/Day (cigarettes): 1 Alcohol Intake: never Alcohol Intake Frequency:: 0-2 drinks per day Substance Use Type: denies use *Occupational Status:: unemployed Household Members: family *Travel in the last 8 weeks: None Family Hx:: Unable to obtain Review of Systems - Constitutional Reports anorexia, Reports lack of energy - Eyes Denies blurry vision, Denies itchy eyes - ENT Denies abnormal hearing, Denies bleeding gums, Denies difficulty swallowing - *Cardiovascular Denies chest pain, Denies chest pain at rest, Denies chest pain with activity - *Respiratory Reports shortness of breath, Reports shortness of breath with activity, Denies change in phlegm color, Denies chest congestion, Denies cough, Denies coughing up blood - *Gastrointestinal Denies abdominal pain, Denies belching, Denies loose stools - *Genitourinary Denies painful intercourse, Denies painful urination - *Musculoskeletal Denies joint pain, Denies decreased muscle mass - *Neurologic Denies abnormal walking, Denies abnormal hearing Meds Home Medications Medication Instructions Recorded Confirmed Type cetirizine 10 mg capsule 10 mg PO DAILY PRN 04/10/21 04/24/21 History fluticasone propionate 50 2 spray INTRANASAL DAILY 04/10/21 04/24/21 History mcg/actuation nasal spray,suspension ketorolac 10 mg tablet 10 mg PO Q6H PRN 5 Days #20 tab 04/12/21 04/24/21 Rx clindamycin HCl 300 mg capsule 300 mg PO DAILY cap 04/17/21 04/24/21 History doxycycline hyclate 100 mg tablet 100 mg PO BID 14 Days #28 tab 04/17/21 04/24/21 Rx levofloxacin 500 mg tablet 500 mg PO DAILY tab 04/17/21 04/24/21 History oxycodone-acetaminophen 7.5 mg-325 1 tab PO Q4-6H PRN 7 Days #42 tab 04/17/21 04/24/21 Rx mg tablet levoFLOXacin [Levofloxacin 750MG 750 mg PO DAILY 05/08/21 History Tablet*] Allergies Allergy/AdvReac Type Severity Reaction Status Date / Time codeine Allergy Verified 04/24/21 15:46 Sulfa (Sulfonamide Allergy Verified 04/24/21 15:46 Antibiotics) flu vaccine Allergy Unknown Uncoded 04/11/21 09:49 Neomycin Allergy Unknown Uncoded 02/26/17 14:59 Penicillin Allergy Unknown Uncoded 02/26/17 14:59 Polymyxin B Allergy Unknown Uncoded 02/26/17 14:59 Exam Vital signs and Labs for Last 24 Hours: Temp Pulse Resp BP Pulse Ox 100.1 F H 84 16 126/60 95 05/09/21 04:00 05/09/21 04:00 05/09/21 04:00 05/09/21 04:00 05/09/21 06:30 Laboratory Results - last 24 hr 05/08/21 16:00: WBC 9.8, RBC 6.30 H, Hgb 17.4 H, Hct 56.6 H, MCV 89.8, MCH 27.6, MCHC 30.7 L, RDW 22.1 H, Plt Count 227, MPV 9.4, Neut % (Auto) 79.2, Lymph % (Auto) 14.6, [place] % (Auto) 4.8, Eos % (Auto) 0.9, Baso % (Auto) 0.5, Neut # (Auto) 7.8, Lymph # (Auto) 1.4, [place] # (Auto) 0.5, Eos # (Auto) 0.1, Baso # (Auto) 0.1 05/08/21 16:00: Sodium 138, Potassium 4.5, Chloride 98, Carbon Dioxide 33 H, Anion Gap 11.5, BUN 14, Creatinine 0.70, Estimated Creat Clear 66, Estimated GFR 85, Est GFR ( Amer) 102, Glucose 148 H, Calcium 8.9, Total Bilirubin 0.7, AST 35, ALT 34, Alkaline Phosphatase 131 H, Troponin I 0.02, Total Protein 6.5, Albumin 3.7, Globulin 2.8, Albumin/Globulin Ratio 1.3 05/08/21 16:00: NT-Pro-B Natriuret Pep 79109 H 05/08/21 16:11: VBG pH 7.22 L, VBG pCO2 62.9 H, VBG pO2 50.9 H, VBG HCO3 25.0, VBG Total CO2 26.9, VBG O2 Saturation 80.5 H, VBG Base Excess -2.8 L 05/08/21 16:34: SARS-CoV-2 (PCR) Not detected, Influenza A Untype (PCR) Not detected, Influenza Type B (PCR) Not detected 05/08/21 20:16: Troponin I 0.03 05/08/21 22:59: Troponin I 0.04 H I & O for Last 24 hours: Intake & Output 05/06/21 05/07/21 05/08/21 05/09/21 11:59 11:59 11:59 11:59 Intake Total 120 / 120 Output Total 2700 / 2700 Balance -2580 / -2580 Weight 181 lb 9.6 oz - Constitutional no acute distress - *Routine HEENT Exam Head: Present: normocephalic Eye: Present: EOMI, PERRL ENT: Present: mucous membranes moist - *Routine Neck Exam Present: supple. Absent: lymphadenopathy - *Routine Respiratory Exam Present: decreased breath sounds (Bilateral bases consistent with pleural effusions identified on CT scan), rales (Bilateral bases) - *Routine Cardiovascular Exam Present: RRR, other (Loud S2) - *Routine Abdominal Exam Present: soft, normoactive bowel sounds. Absent: tenderness - *Routine Rectal Exam Rectal:: deferred - *Routine Genitalia Exam Genitalia:: deferred - *Routine Extremities Exam Present: edema. Absent: cyanosis, clubbing Comments: Bilateral lower extremities have been dressed for postop wound care - *Routine Skin Exam Present: warm. Absent: rash - *Routine Neurological Exam Present: alert, oriented X3 H&P: Result - Imaging and Cardiology Chest x-ray Status: image reviewed by me, final report CT scan - chest Status: final report Assessment and Plan (1) Acute diastolic congestive heart failure Status: Acute Category: Medical Code(s): I50.31 - Acute diastolic (congestive) heart failure (2) Right heart failure Status: Acute Category: Medical Code(s): I50.810 - Right heart failure, unspecified (3) Acute respiratory failure with hypoxia Status: Acute Category: Medical Code(s): J96.01 - Acute respiratory failure with hypoxia - Assessment and plan all Dx Assessment and Plan for all problems:: 1. Patient is been admitted for diagnosis of acute congestive heart failure. Preliminary echocardiogram is most significant for enlarged right-sided heart and estimated increased pressures. Patient has had excellent response to diuresis overnight with administration of 80 mg of Lasix in the ER along with 40 mg around 3 AM this morning. She has put out nearly 3 L of urine. Cardiology will be consulted. Patient will continue Lasix 80 mg twice daily. 2. Patient's oxygen will be weaned to keep sats greater than 90%.
[2021-05-09] MEDS: FUROSEMIDE 100MG/10ML VIAL 80 MG IV (08:48)
--- NOTE | 2021-05-09 09:47 | HMH.CNCARD ---
History of Present Illness Consult date: 05/09/21 Requesting physician: Hadley aTmez Consult reason: shortness of breath Chief complaint: SOA History of present illness: This is a 65-year-old female who was admitted to the hospital with acute respiratory failure. She was in podiatry clinic yesterday for follow-up on procedures on her bilateral feet. The patient was noted to have a lion appearance and her oxygen saturation was checked and it was down in the 50s. The patient was brought to the emergency department via wheelchair and placed on high flow oxygen and her saturations improved to the 90s. The patient was found to be in congestive heart failure and admitted to the hospital. The patient states that she had been short of breath approximately 2 to 3 days prior to admission. She states that she is always somewhat short of breath baseline but it had worsened. Is associated with edema in her bilateral lower extremities. But she attributed the edema to the procedures that she had on her feet. She denies any chest pain or pressure. She denies any fever, chills, nausea, vomiting or diarrhea. Her shortness of breath is associated with orthopnea. She is a current tobacco user and does have a history of COPD. [facility] History I have reviewed the patient's past medical history: Yes Medical History: Denies:: Cancer, Coronary Artery Disease, Diabetes Mellitus Type 1, Diabetes Mellitus Type 2, MRSA, Seizures *Have you ever received a pneumonia vaccine?: No *Have you received a flu vaccine this season?: Yes Other Medical History: Reports: Sinus Problems. Denies: Blood Transfusion Reaction Other Surgeries: Yes: Hysterectomy-Total Amputation: No Fractures: No - *Social History Smoking Status: Former smoker Tobacco Type: cigarettes # Packs/Day (cigarettes): 1 Alcohol Intake: never Alcohol Intake Frequency:: 0-2 drinks per day Substance Use Type: denies use *Occupational Status:: unemployed Household Members: family *Travel in the last 8 weeks: None Family Hx:: Unable to obtain Meds Home Medications Medication Instructions Recorded Confirmed Type cetirizine 10 mg capsule 10 mg PO DAILY PRN 04/10/21 04/24/21 History fluticasone propionate 50 2 spray INTRANASAL DAILY 04/10/21 04/24/21 History mcg/actuation nasal spray,suspension levoFLOXacin [Levofloxacin 750MG 750 mg PO DAILY 05/08/21 History Tablet*] Allergies Allergy/AdvReac Type Severity Reaction Status Date / Time codeine Allergy Verified 04/24/21 15:46 Sulfa (Sulfonamide Allergy Verified 04/24/21 15:46 Antibiotics) flu vaccine Allergy Unknown Uncoded 04/11/21 09:49 Neomycin Allergy Unknown Uncoded 02/26/17 14:59 Penicillin Allergy Unknown Uncoded 02/26/17 14:59 Polymyxin B Allergy Unknown Uncoded 02/26/17 14:59 Exam Vital signs and Labs for Last 24 Hours: Temp Pulse Resp BP Pulse Ox 98.0 F 95 H 22 138/45 L 94 L 05/09/21 08:00 05/09/21 08:00 05/09/21 08:00 05/09/21 08:00 05/09/21 08:00 Laboratory Results - last 24 hr 05/08/21 16:00: WBC 9.8, RBC 6.30 H, Hgb 17.4 H, Hct 56.6 H, MCV 89.8, MCH 27.6, MCHC 30.7 L, RDW 22.1 H, Plt Count 227, MPV 9.4, Neut % (Auto) 79.2, Lymph % (Auto) 14.6, [place] % (Auto) 4.8, Eos % (Auto) 0.9, Baso % (Auto) 0.5, Neut # (Auto) 7.8, Lymph # (Auto) 1.4, [place] # (Auto) 0.5, Eos # (Auto) 0.1, Baso # (Auto) 0.1 05/08/21 16:00: Sodium 138, Potassium 4.5, Chloride 98, Carbon Dioxide 33 H, Anion Gap 11.5, BUN 14, Creatinine 0.70, Estimated Creat Clear 66, Estimated GFR 85, Est GFR ( Amer) 102, Glucose 148 H, Calcium 8.9, Total Bilirubin 0.7, AST 35, ALT 34, Alkaline Phosphatase 131 H, Troponin I 0.02, Total Protein 6.5, Albumin 3.7, Globulin 2.8, Albumin/Globulin Ratio 1.3 05/08/21 16:00: NT-Pro-B Natriuret Pep 54567 H 05/08/21 16:11: VBG pH 7.22 L, VBG pCO2 62.9 H, VBG pO2 50.9 H, VBG HCO3 25.0, VBG Total CO2 26.9, VBG O2 Saturation 80.5 H, VBG Base Excess -2.8 L 05/08/21 16:34: SARS-CoV-2 (PCR) Not detected, Influenza A Untype (PCR) Not detected, Influenza Type B (PCR) Not detected 05/08/21 20:16: Troponin I 0.03 05/08/21 22:59: Troponin I 0.04 H I & O for Last 24 hours: Intake & Output 05/06/21 05/07/21 05/08/21 05/09/21 23:59 23:59 23:59 23:59 Intake Total 360 / 360 Output Total 3475 / 3475 Balance -3115 / -3115 Weight 160 lb 181 lb 9.6 oz Narrative: EKG is sinus rhythm with a rate of 91, anterior WA pattern and right axis deviation. - Constitutional no acute distress, obese, chronically ill appearing - *Routine HEENT Exam Head: Present: normocephalic, atraumatic Eye: Present: EOMI, PERRL ENT: Present: mucous membranes moist - *Routine Neck Exam Present: supple, full ROM, normal carotid upstroke. Absent: JVD, carotid bruit, lymphadenopathy - *Routine Respiratory Exam Present: decreased breath sounds, rales, wheezes - *Routine Cardiovascular Exam Present: RRR, Normal S1, Normal S2. Absent: murmur - *Routine Abdominal Exam Present: soft, normoactive bowel sounds. Absent: tenderness, distended - *Routine Extremities Exam Present: full ROM, pulses intact, normal capillary refill. Absent: cyanosis, clubbing, edema - *Routine Skin Exam Present: intact, warm. Absent: erythema, rash - *Routine Neurological Exam Present: alert, oriented X3, CN II-XII intact. Absent: sensory deficit, motor deficit - Routine Psychiatric Exam Present: normal affect, normal thought process Review of Systems - Review of Systems Review of systems:: pertinent systems reviewed and negative unless documented below - Constitutional Reports fatigue, Reports lack of energy - *Cardiovascular Reports shortness of breath, Reports shortness of breath with activity, Reports generalized swelling, Reports leg swelling, Reports shortness of breath when lying down, Reports shortness of breath causing sudden awakening, Denies chest pain - *Respiratory Reports shortness of breath, Reports shortness of breath with activity, Reports wheezing - *Neurologic Reports abnormal walking, Denies abnormal hearing Assessment and Plan (1) SOB (shortness of breath) Status: Acute Category: Medical Code(s): R06.02 - Shortness of breath (2) Acute diastolic congestive heart failure Status: Acute Category: Medical Code(s): I50.31 - Acute diastolic (congestive) heart failure (3) Right heart failure Status: Acute Category: Medical Code(s): I50.810 - Right heart failure, unspecified (4) Acute respiratory failure with hypoxia Status: Acute Category: Medical Code(s): J96.01 - Acute respiratory failure with hypoxia (5) Elevated troponin Status: Acute Category: Medical Code(s): R77.8 - Other specified abnormalities of plasma proteins (6) Pulmonary arterial hypertension Status: Acute Category: Medical Code(s): I27.21 - Secondary pulmonary arterial hypertension - Assessment and plan all Dx Assessment and Plan for all problems:: Plan: 1. The patient was admitted to the hospital with an acute exacerbation of diastolic congestive heart failure. Her preliminary echocardiogram shows a normal ejection fraction with right atrial enlargement as well as a right ventricular systolic pressure of 85 mmHg. This is consistent with pulmonary hypertension. The patient did get IV diuresis yesterday and was switched over to oral diuretics today. She had a negative fluid balance of -3115. We will plan to proceed with a right cardiac catheterization to evaluate the patient's intracardial pressures. If her pressures are still significantly elevated then we will put her back on IV Lasix today. 2. The patient has been progressively short of breath over the last several days. She does have an elevated troponin. The patient has a non-ST elevation myocardial infarction. We will plan to proceed with left cardiac catheterization today to evaluate for coronary artery disease. 3. The patient has maintained the risk and benefits of proceeding with left and right cardiac catheterization. The patient verbalized understanding and is agreeable in proceeding with the procedures. 4. The patient will be n.p.o. in preparation for left and right cardiac catheterization. 5. Stop IV fluids. 6. Her blood pressures well controlled. 7. Her LDL goal is less than 100. We will get a lipid panel in the morning. 8. Further recommendations were made pending the patient's response to treatment and the results of her left and right cardiac catheterization today. Thank you for the opportunity to help participate in the care of this patient. All recommendations and orders are per Dr. Sheehan.
--- NOTE | 2021-05-09 09:54 | HMH.PHAINT ---
HOME MEDICATION LIST VERIFIED USING LIST FROM OUTPATIENT PHARMACY
[2021-05-09 10:41] LABS: Basophils # 0.3 K/mm3 (0-0.2); Basophils % 2.2 % (0.1-2.0); Eosinophils # 0.2 K/mm3 (0.0-0.4); Eosinophils % 1.3 % (0.1-12.0); Hematocrit 56.7 % (37.0-47.0); Lymphocytes # 0.6 K/mm3 (0.7-4.5); Lymphocytes % 5.1 % (10-50); Mean Corpuscular HGB Conc 30.1 g/dL (31.8-35.4); Mean Corpuscular Hemoglobin 26.9 pg (27.0-31.2); Mean Corpuscular Volume 89.4 fl (81-99); Mean Platelet Volume 9.4 fl (7.4-10.4); Monocytes # 0.5 K/mm3 (0.1-1.0); Monocytes % 4.2 % (1.7-9.3); Neutrophils # 10.3 K/mm3 (1.8-7.8); Neutrophils % 87.3 % (37.0-80.0); Platelet Count 136 K/mm3 (142-424); Red Blood Count 6.34 M/mm3 (4.20-5.40); Red Cell Distribution Width 21.6 % (11.5-17.5); White Blood Count 11.8 K/mm3 (4.8-10.8)
[2021-05-09 10:44] LABS: Chloride 87 mmol/L (98-107); Potassium 3.6 mmoL/L (3.5-5.1); Sodium 134 mmol/L (136-145)
--- NOTE | 2021-05-09 10:45 | PC.NURSE ---
RESP CARE NOTE: Pt oxygen weaned to 30lpm/70% FIO2 to keep SPO2 at 90%. Pt is on continuous pulse oximeter and we will continue to monitor SPO2 levels.
[2021-05-09 10:47] LABS: Alanine Aminotransferase 23 U/L (12-78); Albumin Level 3.3 g/dl (3.5-5.0); Albumin/Globulin Ratio 1.2 (1.1-1.8); Alkaline Phosphatase 112 U/L (38-126); Aspartate Amino Transferase 29 U/L (14-36); Bilirubin,Total 0.7 mg/dl (0.2-1.3); Blood Urea Nitrogen 12 mg/dl (7-17); Creatinine Clearance Estimated 75 mL/min (50-200); Estimated Glomerular Filt Rate 72 ml/min (>60); GFR (African American) 88 ML/MIN (>60); Globulin 2.8 g/dL (1.3-3.2); Glucose 112 mg/dl (74-100); Total Protein,Serum 6.1 g/dl (6.3-8.2)
[2021-05-09 10:55] LABS: Anion Gap 7.6 mEq/L (5-15); Carbon Dioxide 43 mmol/L (22.0-30.0)
[2021-05-09 11:55] LABS: MANUAL DIFFERENTIAL MANUAL DIFFERENTIAL (MANUAL DIFF)
[2021-05-09] MEDS: LIDOCAINE 1% 10ML MDV 20 ML IJ (13:14)
[2021-05-09] MEDS: HEPARIN 1,000 UNITS/500ML NS (CATH LAB) 3000 UNIT IV (13:14)
[2021-05-09] MEDS: 0.9 % SODIUM CHLORIDE 1,000 ML 25 ML IV (13:14)
[2021-05-09] MEDS: HEPARIN 1,000 UNITS/ML 10ML VIAL (CATH LAB) 10000 UNIT IV (13:14)
[2021-05-09] MEDS: NITROGLYCERIN 800MCG/8ML SYR (CATH LAB) 800 MCG IV (13:15)
[2021-05-09] MEDS: VERAPAMIL 2.5MG/ML 2ML VIAL 2.5 MG IV (13:15)
[2021-05-09] MEDS: MIDAZOLAM HCL 1MG/1ML 5ML VIAL 1 MG IV ×2 (13:32→13:36)
[2021-05-09] MEDS: FENTANYL 100MCG/2ML VIAL 25 MCG IV (13:37)
[2021-05-09] MEDS: IOPAMIDOL-370 (76%);100ML BOTTLE 90 ML IV (14:18)
[2021-05-09 15:16] LABS: Lymphocytes % 3 % (10-50); Monocytes % 4 % (2-9); Neutrophils % 93 % (42-76); Platelet Estimate Normal; Total Cells Counted 100
--- NOTE | 2021-05-09 15:55 | PC.NURSE ---
no changes in reassessment. lungs remain cta, with crackles to xochitl bases. intermittent dry cough. bowel sounds active x4. no bm today. adequate output. pozo remains in place. pt a/o x3 at times. has been lethargic/ sleepy today. able to arouse to verbal stimuli. weaning oxygen as tolerated- pt using abdominal muscles for breathing. pt does have place to right wrist from cath. dressing c/d/i. dressing to right ij- c/d/i. ble legs red/edematous. lower feet wrapped and drain in place to right foot. pulses 2+. cap refill <3 seconds. pt resting at this time.
--- NOTE | 2021-05-09 17:49 | PC.NURSE ---
dr. madden at bedside. removed drain and cleaning wound and wrapping
--- NOTE | 2021-05-09 18:28 | P.CONS_ITS ---
*Admission Date: 05/08/21 *Reason for consult:: B/L foot wounds *History of present illness: Mrs. Michelle presented to the clinic yesterday for POV #3, Right and Left foot wound debridement. She reports not feeling well for few days. Vitals abnormal. Sats were 50% on arrival and pt was fernandez in color with mottled/purple hands, and lips were bluish/fernandez in color. Pt still A&O x3. Pt taken directly to ED from podiatry office with c/o SOA and low O2 sats. PT had low O2 sats in the office and was brought over to ED for further eval. S/p procedure: R & L foot wound debridement on 04/12/21. [facility] History I have reviewed the patient's past medical history: Yes Medical History: Denies:: Cancer, Coronary Artery Disease, Diabetes Mellitus Type 1, Diabetes Mellitus Type 2, MRSA, Seizures *Have you ever received a pneumonia vaccine?: No *Have you received a flu vaccine this season?: Yes Other Medical History: Reports: Sinus Problems. Denies: Blood Transfusion Reaction Other Surgeries: Yes: Hysterectomy-Total Amputation: No Fractures: No - *Social History Smoking Status: Former smoker Tobacco Type: cigarettes # Packs/Day (cigarettes): 1 Alcohol Intake: never Alcohol Intake Frequency:: 0-2 drinks per day Substance Use Type: denies use *Occupational Status:: unemployed Household Members: family *Travel in the last 8 weeks: None Family Hx:: Unable to obtain Review of Systems - Review of Systems Review of systems:: pertinent systems reviewed and negative unless documented below - Constitutional Reports lack of energy, Reports weakness - Eyes Denies blind spots - ENT Denies abnormal hearing - *Cardiovascular Reports shortness of breath - *Respiratory Reports shortness of breath - *Gastrointestinal Denies abdominal pain - *Genitourinary Denies abnormal periods - *Musculoskeletal Reports muscle weakness - Integumentary/Breasts Reports hair loss, Reports wounds (b/l feet) - *Neurologic Reports abnormal walking, Reports tingling/numbness/burning sensations, Denies abnormal hearing - Psychiatric Denies abnormal sleep pattern Meds Home Medications Medication Instructions Recorded Confirmed Type cetirizine 10 mg capsule 10 mg PO DAILYP PRN 04/10/21 05/09/21 History fluticasone propionate 50 2 spray INTRANASAL DAILY 04/10/21 05/09/21 History mcg/actuation nasal spray,suspension levoFLOXacin [Levofloxacin 750MG 750 mg PO DAILY 05/08/21 05/09/21 History Tablet*] Allergies Allergy/AdvReac Type Severity Reaction Status Date / Time codeine Allergy Verified 04/24/21 15:46 Sulfa (Sulfonamide Allergy Verified 04/24/21 15:46 Antibiotics) flu vaccine Allergy Unknown Uncoded 04/11/21 09:49 Neomycin Allergy Unknown Uncoded 02/26/17 14:59 Penicillin Allergy Unknown Uncoded 02/26/17 14:59 Polymyxin B Allergy Unknown Uncoded 02/26/17 14:59 Exam Vital signs and Labs for Last 24 Hours: Temp Pulse Resp BP Pulse Ox 98.5 F 88 20 109/58 L 90 L 05/09/21 14:30 05/09/21 17:15 05/09/21 17:15 05/09/21 17:15 05/09/21 17:15 Laboratory Results - last 24 hr 05/08/21 20:16: Troponin I 0.03 05/08/21 22:59: Troponin I 0.04 H 05/09/21 10:25: WBC 11.8 H, RBC 6.34 H, Hgb 17.0 H, Hct 56.7 H, MCV 89.4, MCH 26.9 L, MCHC 30.1 L, RDW 21.6 H, Plt Count 136 L D, MPV 9.4, Neut % (Auto) 87.3 H, Lymph % (Auto) 5.1 L, [place] % (Auto) 4.2, Eos % (Auto) 1.3, Baso % (Auto) 2.2 H, Neut # (Auto) 10.3 H, Lymph # (Auto) 0.6 L, [place] # (Auto) 0.5, Eos # (Auto) 0.2, Baso # (Auto) 0.3 H, Total Counted 100, Neutrophils % (Manual) 93 H, Lymphocytes % (Manual) 3 L, Monocytes % (Manual) 4, Platelet Estimate Normal 05/09/21 10:25: Sodium 134 L, Potassium 3.6, Chloride 87 L, Carbon Dioxide 43 H* , Anion Gap 7.6, BUN 12, Creatinine 0.80, Estimated Creat Clear 75, Estimated GFR 72, Est GFR ( Amer) 88, Glucose 112 H D, Calcium 8.0 L, Total Bilirubin 0.7, AST 29, ALT 23 D, Alkaline Phosphatase 112, Total Protein 6.1 L, Albumin 3.3 L D, Globulin 2.8, Albumin/Globulin Ratio 1.2 05/09/21 13:50: ABG O2 Sat (Measured) 63.0 L, POC VBG O2 Sat (Darryn) 65.0 L I & O for Last 24 hours: Intake & Output 05/07/21 05/08/21 05/09/21 05/10/21 11:59 11:59 11:59 11:59 Intake Total 360 / 360 Output Total 3475 / 4325 850 / 850 Balance -3115 / -3965 -850 / -850 Weight 180 lb 12.465 oz - Constitutional no acute distress - *Routine HEENT Exam Head: Present: normocephalic Eye: Present: EOMI, PERRL ENT: Present: mucous membranes moist - *Routine Neck Exam Present: supple. Absent: lymphadenopathy - *Routine Respiratory Exam Present: decreased breath sounds - *Routine Cardiovascular Exam Present: RRR - *Routine Abdominal Exam Present: soft, normoactive bowel sounds. Absent: tenderness - *Routine Rectal Exam Rectal:: deferred - *Routine Genitalia Exam Genitalia:: deferred - *Routine Extremities Exam Present: edema. Absent: cyanosis, clubbing - *Routine Skin Exam Present: warm, wounds - *Routine Neurological Exam Present: alert, oriented X3 - Detailed Lower Extremity Exam Top foot image: 1 - B/L dorsal foot wounds noted. LINA drain, sutures to right foot removed. Sharp curette used to excisionally debride right dorsal foot, left dorsal foot, and left lateral ankle ulcers. 1) Right dorsal midfoot: thru skin, subq, 50% granular, 50% yellow fibrotic, 3.0 x 3.0 x 0.0cm. 2) Left dorsal midfoot: thru skin, subq, into/including deep fascia tissue, no exposed extensor tendons, 6 x 6 x 0.4cm, 70% granular, 30% yellow fibrotic. 3) Left lateral ankle wound: thru skin, subq, into/including deep fascia, no exposed peroneal tendons, did not probe to underlying distal fibula, 6 x 6 x 4cm, 20% granular, 40% yellow fibrotic, 40% brown eschar centrally Results - Labs Result Diagrams: 05/09/21 10:25 05/09/21 10:25 Labs: Abnormal lab results 05/08/21 05/09/21 05/09/21 Range/Units 22:59 10:25 10:25 WBC 11.8 H (4.8-10.8) K/mm3 RBC 6.34 H (4.20-5.40) M/mm3 Hgb 17.0 H (12.2-16.2) g/dL Hct 56.7 H (37.0-47.0) % MCH 26.9 L (27.0-31.2) pg MCHC 30.1 L (31.8-35.4) g/dL RDW 21.6 H (11.5-17.5) % Plt Count 136 L D (142-424) K/mm3 Neut % (Auto) 87.3 H (37.0-80.0) % Lymph % (Auto) 5.1 L (10-50) % Baso % (Auto) 2.2 H (0.1-2.0) % Neut # (Auto) 10.3 H (1.8-7.8) K/mm3 Lymph # (Auto) 0.6 L (0.7-4.5) K/mm3 Baso # (Auto) 0.3 H (0-0.2) K/mm3 Neutrophils % (Manual) 93 H (42-76) % Lymphocytes % (Manual) 3 L (10-50) % ABG O2 Sat (Measured) (90-100) % POC VBG O2 Sat (Darryn) (75-80) % Sodium 134 L (136-145) mmol/L Chloride 87 L (98-107) mmol/L Carbon Dioxide 43 H* (22.0-30.0) mmol/L Glucose 112 H D (74-100) mg/dl Calcium 8.0 L (8.4-10.2) mg/dl Troponin I 0.04 H (0.00-0.034) ng/ml Total Protein 6.1 L (6.3-8.2) g/dl Albumin 3.3 L D (3.5-5.0) g/dl 05/09/21 Range/Units 13:50 WBC (4.8-10.8) K/mm3 RBC (4.20-5.40) M/mm3 Hgb (12.2-16.2) g/dL Hct (37.0-47.0) % MCH (27.0-31.2) pg MCHC (31.8-35.4) g/dL RDW (11.5-17.5) % Plt Count (142-424) K/mm3 Neut % (Auto) (37.0-80.0) % Lymph % (Auto) (10-50) % Baso % (Auto) (0.1-2.0) % Neut # (Auto) (1.8-7.8) K/mm3 Lymph # (Auto) (0.7-4.5) K/mm3 Baso # (Auto) (0-0.2) K/mm3 Neutrophils % (Manual) (42-76) % Lymphocytes % (Manual) (10-50) % ABG O2 Sat (Measured) 63.0 L (90-100) % POC VBG O2 Sat (Darryn) 65.0 L (75-80) % Sodium (136-145) mmol/L Chloride (98-107) mmol/L Carbon Dioxide (22.0-30.0) mmol/L Glucose (74-100) mg/dl Calcium (8.4-10.2) mg/dl Troponin I (0.00-0.034) ng/ml Total Protein (6.3-8.2) g/dl Albumin (3.5-5.0) g/dl H & H 05/08/21 05/09/21 Range/Units 16:00 10:25 Hgb 17.4 H 17.0 H (12.2-16.2) g/dL Hct 56.6 H 56.7 H (37.0-47.0) % All other labs normal. Assessment and Plan (1) SOB (shortness of breath) Status: Acute Category: Medical Code(s): R06.02 - Shortness of breath (2) Acute diastolic congestive heart failure Status: Acute Category: Medical Code(s): I50.31 - Acute diastolic (congestive) heart failure (3) Right heart failure Status: Acute Category: Medical Code(s): I50.810 - Right heart failure, unspecified (4) Acute respiratory failure with hypoxia Status: Acute Category: Medical Code(s): J96.01 - Acute respiratory failure with hypoxia (5) Elevated troponin Status: Acute Category: Medical Code(s): R77.8 - Other specified abnormalities of plasma proteins (6) Pulmonary arterial hypertension Status: Acute Category: Medical Code(s): I27.21 - Secondary pulmonary arterial hypertension (7) Lymphedema of both lower extremities Status: Acute Category: Medical Code(s): I89.0 - Lymphedema, not elsewhere classified (8) Open wound of both lower extremities Status: Acute Qualifiers: Encounter type: subsequent encounter Qualified Code(s): S81.801D - Unspecif ied open wound, right lower leg, subsequent encounter; S81.802D - Unspecified open wound, left lower leg, subsequent encounter Category: Medical Code(s): S81.801A - Unspecified open wound, right lower leg, initial encounter; S81.802A - Unspecified open wound, left lower leg, initial encounter - Assessment and plan all Dx Assessment and Plan for all problems:: 04/10/21, Right dorsal foot WCx: Enterobacter cloacae, Klebsiella oxytoca Right dorsal foot tissue cx: Klebsiella oxytoca Left dorsal foot WCx: Klebsiella oxytoca Surgery 04/12/21, S/p 1. B/L dorsal foot wound debridement, 2. B/L dorsal foot incision and drainage, 3. B/L ankle wound debridement, 4. B/L foot soft tissue biopsy, 5. Nail debridement x10, 6. Application of LNIA drain 04/12/21, Intra-op Specimens: Left foot wound culture: Klebsiella oxytoca, Staphylococcus simulans Left foot tissue culture: Klebsiella oxytoca, Serratia odorifera 1,Staphylococcus aureus Right foot tissue culture: Klebsiella oxytoca,Alcaligenes facaecalis,Staphylococcus aureus Left foot tissue pathology: Ulcerated skin with necroinflammatory debris. Dermal fibrosis with marked acute and chronic inflammation Right foot tissue pathology: Ulcerated skin with dermal abscess and soft tissue necrosis with bacterial overload 05/09/21: POD #3w, 6d -patient was cooperative today with dressing change. -Discussed compliance with daily dressing changes. *Recommend consult for [facility] luz marina (when she gets transferred, needs inpt wound care at or whenever). -LINA drain removed. -Sutures removed x8 from RLE. -Wounds sharply debrided x3. No new SOI. -New dsg applied: xeroform, DSD. -Dsg change orders: -Cleanse with saline/betadine. Dry. Apply betadine soaked packing to left lateral wound. Apply non-adherent, dry sterile dressing to b/l feet. -Elevate on two pillows. -PWB to b/l LE in post op shoes with DME assistance (walker, patient is unable to use a cane or crutches). -Follow up with wound care. -Daughter will call Podiatry outpatient to schedule f/u.
--- NOTE | 2021-05-09 19:39 | CA_ITS ---
APPROVED REPORT EXAM: Comprehensive 2D, Doppler, and color-flow Echocardiogram Lab Associate: RICHARD Green, RVS Ht: 5 ft 2 in Wt: 160lbs BSA: 1.74 BP: 117/60 mmHg Indications: COPD, Respiratory failure, CHF 2D Dimensions Aortic Root 2.57 cm LA Volume 55.90 mL Left Atrium 2.47 cm LA Volume Index 32.10 mL/m2 (M/F) 16-34 LVOT 1.84 cm (M/F) 1.5-2.5 M-Mode Dimensions RVDd 3.46 cm (0.9-2.6) LA Diam 3.71 cm (1.9-4.0) LVDd 3.77 cm (3.5-5.7) Ao Diam 2.99 cm (2.0-3.7) LVDs 1.58 cm (3.5-5.7) IVSd 1.08 cm (0.6-1.1) PWd 0.98 cm (0.6-1.1) EF (Teich) 88.70% EPSs 0.24 cm FS 58.10% EDV (Teich) 60.80 mL TAPSE 2.17 (<1.7) ESV (Teich) 6.90 mL LV Diastology E Decel Time 210.00 (160-240 msec) E/A Ratio 0.75 MED E' 10.00 (< 7 cm/sec) MED A' 13.50 cm/s E'/MED E' Ratio 8.46 (>14) LAT E' 11.60 (<10 cm/sec) LAT A' 18.20 cm/s E/LAT E' Ratio 7.29 (>14) Aortic Valve LVOT Max 119.00 (70-110 cm/s) LVOT VTI 21.96 cm AoV Peak Nate. 145.00 (50-130 cm/s) AO Peak GR. 8.40 mmHg AO Mean GR. 2.90 (<5 mmHg) AO VTI 24.46 (18-25 cm) VERONICA (VTI) 2.39 (2.5-4.5 cm2) Mitral Valve MV E Max Nate. 85.00 (40-130 cm/s) MV A Velocity 113.00 (40-130 cm/s) E/A Ratio 0.75 MV Decel. Time 210.00 (160-240 ms) MV Mean Gr. 2.50 (<2mmHg) MV PHT 62.00 ms Pulmonary Valve PV Peak Velocity 109.00 (50-150 cm/s) MS End VMAX 227.00 cm/s Tricuspid Valve TR P. Velocity 433.00 cm/s RAP Estimate 10.00 mmHg RVSP 85.10 mmHg Left Ventricle Left atrium is mildly enlarged, left ventricle is normal size, mild concentric left ventricular hypertrophy, visually estimated ejection fraction 55% with no obvious regional wall motion abnormality, there is flattening of the interventricular septum during systole and diastole consistent with pressure and volume overload on right ventricle. Right Ventricle Right atrium and right ventricle moderately enlarged, contractility of the right ventricle appears to be normal. Aortic Valve Aortic valve is minimally thickened and fibrosed, there is no aortic stenosis or aortic insufficiency. Mitral Valve Mitral valve is grossly normal, there is trace mitral regurgitation. Tricuspid Valve Tricuspid grossly normal, there is mild tricuspid regurgitation, calculated right ventricular systolic pressure is 85 mmHg. Pulmonic Valve Pulmonic valve is poorly visualized. Great Vessels Aortic root is normal size. Inferior vena cava is poorly visualized. Pericardium No significant pericardial effusion noted. Conclusion 1. Biatrial enlargement, normal left ventricular size, mild concentric left ventricular hypertrophy, visually estimated ejection fraction 55% with no regional wall motion abnormality, there is flattening of the interventricular septum during systole and diastole consistent with pressure and volume overload on right ventricle. 2. Moderately enlarged right ventricle with normal contractility. 3. Trace mitral and mild tricuspid regurgitation, calculated right ventricular systolic pressure is 85 mmHg. 4. No significant pericardial effusion noted. 5. Inferior vena cava is poorly visualized. Electronically signed by : Doyle Salter MD 05/09/2021 20:31:12
[2021-05-09] MEDS: LORazepam 2MG/ML VIAL 1 MG IV (22:47)
[2021-05-10] VITALS: BP 105/56; PULSE 90; PULSE 92; RESP 16; TEMP 36.8; O2SAT 98
--- NOTE | 2021-05-10 03:54 | PC.NURSE ---
PATIENT HAS REMOVED VAPOTHERM 3X THUS FAR DURING THIS RN SHIFT. O2 DROPS TO LOW 70S. PATIENT CONTINUES TO TURN HEAD WHILE THIS RN ATTEMPTS TO PLACE VAPOTHERM BACK ON. THIS RN HAS EDUCATED PATIENT OF THE IMPORTANCE OF NOT REMOVING VAPOTHERM. THIS RN HAS EXPLAINED TO PATIENT THAT HER O2 LEVELS DROP SIGNIFICANTLY WHILE THE VAPOTHERM IS OFF. PATIENT ALLOWS THIS RN TO PLACE VAPOTHERM BACK ON FOR SHORT PERIODS OF TIME.
[2021-05-10 04:00] VITALS: BP 110/64; PULSE 100; PULSE 91; RESP 16; TEMP 36.9; O2SAT 97
[2021-05-10 05:03] VITALS: BMI 33.3
--- NOTE | 2021-05-10 07:18 | HMH.ACPN2 ---
Internal Medicine - PN: Subj *Date: 05/10/21 *Time: 07:18 Interval history: No acute events overnight. Patient was found to have a critical primary pulmonary artery hypertension yesterday via right heart catheterization. Cardiology services arrange transfer to the [facility]. Patient has repeatedly removes oxygen overnight and when this occurs sats will drop to the 70s but quickly come back up to the 90s with reapplication of high flow nasal cannula Exam Vital signs and Labs for Last 24 Hours: Temp Pulse Resp BP Pulse Ox 98.4 F 91 H 16 110/64 97 05/10/21 04:00 05/10/21 04:00 05/10/21 04:00 05/10/21 04:00 05/10/21 04:00 Laboratory Results - last 24 hr 05/09/21 10:25: WBC 11.8 H, RBC 6.34 H, Hgb 17.0 H, Hct 56.7 H, MCV 89.4, MCH 26.9 L, MCHC 30.1 L, RDW 21.6 H, Plt Count 136 L D, MPV 9.4, Neut % (Auto) 87.3 H, Lymph % (Auto) 5.1 L, [place] % (Auto) 4.2, Eos % (Auto) 1.3, Baso % (Auto) 2.2 H, Neut # (Auto) 10.3 H, Lymph # (Auto) 0.6 L, [place] # (Auto) 0.5, Eos # (Auto) 0.2, Baso # (Auto) 0.3 H, Total Counted 100, Neutrophils % (Manual) 93 H, Lymphocytes % (Manual) 3 L, Monocytes % (Manual) 4, Platelet Estimate Normal 05/09/21 10:25: Sodium 134 L, Potassium 3.6, Chloride 87 L, Carbon Dioxide 43 H*, Anion Gap 7.6, BUN 12, Creatinine 0.80, Estimated Creat Clear 75, Estimated GFR 72, Est GFR ( Amer) 88, Glucose 112 H D, Calcium 8.0 L, Total Bilirubin 0.7, AST 29, ALT 23 D, Alkaline Phosphatase 112, Total Protein 6.1 L, Albumin 3.3 L D, Globulin 2.8, Albumin/Globulin Ratio 1.2 05/09/21 13:50: ABG O2 Sat (Measured) 63.0 L, POC VBG O2 Sat (Darryn) 65.0 L I & O for Last 24 hours: Intake & Output 05/07/21 05/08/21 05/09/21 05/10/21 11:59 11:59 11:59 11:59 Intake Total 360 / 360 Output Total 3475 / 4625 2600 / 2600 Balance -3115 / -4265 -2600 / -2600 Weight 180 lb 12.465 oz 180 lb 12.465 oz Narrative: Patient appears ill. No respiratory distress. Lungs are diminished. Heart rate is regular with loud S2. Abdomen is soft. Lower extremities have wound dressings in place Assessment and Plan (1) Pulmonary arterial hypertension Status: Acute Category: Medical Code(s): I27.21 - Secondary pulmonary arterial hypertension (2) SOB (shortness of breath) Status: Acute Category: Medical Code(s): R06.02 - Shortness of breath (3) Acute diastolic congestive heart failure Status: Ruled-out Category: Medical Code(s): I50.31 - Acute diastolic (congestive) heart failure (4) Right heart failure Status: Acute Category: Medical Code(s): I50.810 - Right heart failure, unspecified (5) Acute respiratory failure with hypoxia Status: Acute Category: Medical Code(s): J96.01 - Acute respiratory failure with hypoxia (6) Elevated troponin Status: Acute Category: Medical Code(s): R77.8 - Other specified abnormalities of plasma proteins (7) Lymphedema of both lower extremities Status: Acute Category: Medical Code(s): I89.0 - Lymphedema, not elsewhere classified (8) Open wound of both lower extremities Status: Acute Qualifiers: Encounter type: subsequent encounter Qualified Code(s): S81.801D - Unspecified open wound, right lower leg, subsequent encounter; S81.802D - Unspecified open wound, left lower leg, subsequent encounter Category: Medical Code(s): S81.801A - Unspecified open wound, right lower leg, initial encounter; S81.802A - Unspecified open wound, left lower leg, initial encounter - Assessment and plan all Dx Assessment and Plan for all problems:: Patient prognosis is poor. Transfer has been arranged [facility] and we are simply waiting for bed to become available. Continue HFNC to maintain sats in the 90s.
[2021-05-10 08:00] VITALS: BP 109/42; PULSE 100; PULSE 96; RESP 18; TEMP 36.5; O2SAT 95
[2021-05-10 08:00] LABS: Basophils # 0.1 K/mm3 (0-0.2); Basophils % 0.6 % (0.1-2.0); Eosinophils # 0.2 K/mm3 (0.0-0.4); Eosinophils % 1.6 % (0.1-12.0); Hematocrit 51.8 % (37.0-47.0); Hemoglobin 15.5 g/dL (12.2-16.2); Lymphocytes # 0.7 K/mm3 (0.7-4.5); Lymphocytes % 7.1 % (10-50); Mean Corpuscular HGB Conc 29.9 g/dL (31.8-35.4); Mean Corpuscular Hemoglobin 27.3 pg (27.0-31.2); Mean Corpuscular Volume 91.3 fl (81-99); Mean Platelet Volume 9.2 fl (7.4-10.4); Monocytes # 0.5 K/mm3 (0.1-1.0); Monocytes % 4.4 % (1.7-9.3); Neutrophils # 9.1 K/mm3 (1.8-7.8); Neutrophils % 86.4 % (37.0-80.0); Platelet Count 157 K/mm3 (142-424); Red Blood Count 5.67 M/mm3 (4.20-5.40); Red Cell Distribution Width 21.4 % (11.5-17.5); White Blood Count 10.5 K/mm3 (4.8-10.8)
[2021-05-10 08:24] LABS: MANUAL DIFFERENTIAL MANUAL DIFFERENTIAL (MANUAL DIFF)
[2021-05-10] MEDS: levoFLOXacin 750 MG TABLET PO (09:21)
[2021-05-10 09:32] LABS: Chloride 82 mmol/L (98-107); Sodium 133 mmol/L (136-145)
[2021-05-10 09:33] LABS: Potassium 3.6 mmoL/L (3.5-5.1)
[2021-05-10 09:35] LABS: Alanine Aminotransferase 25 U/L (12-78); Albumin Level 3.1 g/dl (3.5-5.0); Albumin/Globulin Ratio 1.1 (1.1-1.8); Alkaline Phosphatase 89 U/L (38-126); Aspartate Amino Transferase 30 U/L (14-36); Bilirubin,Total 0.8 mg/dl (0.2-1.3); Blood Urea Nitrogen 13 mg/dl (7-17); Creatinine Clearance Estimated 75 mL/min (50-200); Estimated Glomerular Filt Rate 85 ml/min (>60); GFR (African American) 102 ML/MIN (>60); Globulin 2.9 g/dL (1.3-3.2)
[2021-05-10 09:36] LABS: Calcium 7.5 mg/dl (8.4-10.2); Glucose 132 mg/dl (74-100)
[2021-05-10 09:56] LABS: Anion Gap 4.6 mEq/L (5-15)
[2021-05-10 09:58] LABS: Carbon Dioxide 50 mmol/L (22.0-30.0); Chol/HDL Ratio 2.9 (1-3.5); Cholesterol 145 mg/dl (140-200); HDL Cholesterol 50 mg/dl (40-60); Triglycerides 90 mg/dl (30-150); VLDL Cholesterol 18 mg/dL (0-40)
--- NOTE | 2021-05-10 10:01 | HMH.PNCARD ---
Subjective Date: 05/10/21 Time: 09:00 Principal diagnosis: pulmonary hypertension Interval history: This is a 65-year-old female who presented to the hospital with acute respiratory failure. She underwent right cardiac catheterization yesterday and was found to have a wedge of 10 mmHg and a PA pressure of 95/85. The patient has severe to critical pulmonary hypertension. The patient states that she is still short of breath. She states that she has been short of breath for so long that this is normal for her. She states that her shortness of breath is worse with exertion. It does improve with rest. She states that it really just comes and goes mostly but it is somewhat better than it was before she got admitted to the hospital. She denies any chest pain or pressure. She does have edema in her lower extremities although she feels like this is improving. She denies any fever, chills, nausea, vomiting or diarrhea. She still has orthopnea associated with her shortness of breath. Due to her severe to critical pulmonary hypertension the patient will need to be transferred for treatment of this. Initially she was going to be transferred to the [facility] to Dr. Tylor Santana for management but the hospital there does not take her insurance. The patient is now currently on the waiting list for transfer to [facility] to Dr. Alan Mata. Right cardiac catheterization shows: IMPRESSION Normal coronary arteries Hyperdynamic ventricle Severe to critical pulmonary artery hypertension No evidence of intracardiopulmonary shunt Unable to accurately assess [place] cardiac output due to heavy sedation required for procedure and high flow oxygen. Patient was highly combative and had significant difficulty lying supine. PLAN 1. I spoke with Dr. Tylor Barboza at [facility] and asked for possible inpatient transfer for evaluation of the critical pulmonary hypertension. Because of the critical shortage of beds at the [facility] it is unlikely patient can be transferred within the next several days. A more expeditious plan is to discharge patient home on supplemental oxygen providing her oxygen is 90% or above and then have her follow with Dr. Barboza later this week. Dr. Barboza office will make contact with the patient and schedule an outpatient evaluation 2. I discussed this with patient's primary care physician, Dr. Tamez, as well as Dr. Barboza. The plan will be to discharge patient from [facility] with the next day or same day follow-up at the [facility] for evaluation of the severe pulmonary artery hypertension 3. For the time being I would like to hold on anticoagulation therapy as I anticipate the right heart catheterization will be repeated once in [place] Exam Vital signs and Labs for Last 24 Hours: Temp Pulse Resp BP Pulse Ox 97.7 F 96 H 18 109/42 L 95 05/10/21 08:00 05/10/21 08:00 05/10/21 08:00 05/10/21 08:00 05/10/21 08:00 Laboratory Results - last 24 hr 05/09/21 10:25: WBC 11.8 H, RBC 6.34 H, Hgb 17.0 H, Hct 56.7 H, MCV 89.4, MCH 26.9 L, MCHC 30.1 L, RDW 21.6 H, Plt Count 136 L D, MPV 9.4, Neut % (Auto) 87.3 H, Lymph % (Auto) 5.1 L, [place] % (Auto) 4.2, Eos % (Auto) 1.3, Baso % (Auto) 2.2 H, Neut # (Auto) 10.3 H, Lymph # (Auto) 0.6 L, [place] # (Auto) 0.5, Eos # (Auto) 0.2, Baso # (Auto) 0.3 H, Total Counted 100, Neutrophils % (Manual) 93 H, Lymphocytes % (Manual) 3 L, Monocytes % (Manual) 4, Platelet Estimate Normal 05/09/21 10:25: Sodium 134 L, Potassium 3.6, Chloride 87 L, Carbon Dioxide 43 H*, Anion Gap 7.6, BUN 12, Creatinine 0.80, Estimated Creat Clear 75, Estimated GFR 72, Est GFR ( Amer) 88, Glucose 112 H D, Calcium 8.0 L, Total Bilirubin 0.7, AST 29, ALT 23 D, Alkaline Phosphatase 112, Total Protein 6.1 L, Albumin 3.3 L D, Globulin 2.8, Albumin/Globulin Ratio 1.2 05/09/21 13:50: ABG O2 Sat (Measured) 63.0 L, POC VBG O2 Sat (Darryn) 65.0 L 05/10/21 07:50: WBC 10.5, RBC 5.67 H, Hgb 15.5, Hct 51.8 H, MCV 91.3, MCH 27.3, MCHC 29.9 L, RDW 21.4 H, Plt Count 157, MPV 9.2, Neut % (Auto) 86.4 H, Lymph % (Auto) 7.1 L, [place] % (Auto) 4.4, Eos % (Auto) 1.6, Baso % (Auto) 0.6, Neut # (Auto) 9.1 H, Lymph # (Auto) 0.7, [place] # (Auto) 0.5, Eos # (Auto) 0.2, Baso # (Auto) 0.1 05/10/21 07:50: Sodium 133 L, Potassium 3.6, Chloride 82 L, Carbon Dioxide 50 H*, Anion Gap 4.6 L, BUN 13, Creatinine 0.70, Estimated Creat Clear 75, Estimated GFR 85, Est GFR ( Amer) 102, Glucose 132 H, Calcium 7.5 L, Total Bilirubin 0.8, AST 30, ALT 25, Alkaline Phosphatase 89, Total Protein 6.0 L, Albumin 3.1 L, Globulin 2.9, Albumin/Globulin Ratio 1.1 05/10/21 07:50: Triglycerides 90, Cholesterol 145, VLDL Cholesterol 18, HDL Cholesterol 50, Cholesterol/HDL Ratio 2.9 I & O for Last 24 hours: Intake & Output 05/07/21 05/08/21 05/09/21 05/10/21 23:59 23:59 23:59 23:59 Intake Total 360 / 360 360 / 360 Output Total 5825 / 6075 250 / 250 Balance -5465 / -5715 110 / 110 Weight 160 lb 180 lb 12.465 oz 180 lb 12.465 oz - Constitutional no acute distress, obese - *Routine HEENT Exam Head: Present: normocephalic, atraumatic Eye: Present: EOMI, PERRL ENT: Present: mucous membranes moist - *Routine Neck Exam Present: supple, full ROM, normal carotid upstroke. Absent: JVD, carotid bruit, lymphadenopathy - *Routine Respiratory Exam Present: decreased breath sounds, wheezes - *Routine Cardiovascular Exam Present: RRR, Normal S1, Normal S2. Absent: murmur - *Routine Abdominal Exam Present: soft, normoactive bowel sounds. Absent: tenderness, distended - *Routine Extremities Exam Present: edema (1+ bilateral lower extremity edema, improving), full ROM, pulses intact, normal capillary refill. Absent: cyanosis, clubbing - *Routine Skin Exam Present: intact, erythema (Bilateral lower extremities), warm. Absent: rash Comments: Dressings noted to the bilateral lower extremities. - *Routine Neurological Exam Present: alert, oriented X3, CN II-XII intact. Absent: sensory deficit, motor deficit Progress Note: A&P (1) Pulmonary arterial hypertension Status: Acute (2) SOB (shortness of breath) Status: Acute (3) Right heart failure Status: Acute (4) Acute respiratory failure with hypoxia Status: Acute (5) Elevated troponin Status: Acute (6) Lymphedema of both lower extremities Status: Acute (7) Open wound of both lower extremities Status: Acute Assessment and Plan for All Diagnoses:: Plan: 1. The patient was admitted to the hospital with acute respiratory failure. The patient underwent right cardiac catheterization yesterday and was found to have severe to critical pulmonary hypertension. Initially the patient was going to be set up to see Dr. Odom at the [facility] on outpatient basis because there were no beds available at the hospital for transfer. However the [facility] does not take her insurance so the patient will need to be transferred to [facility] for treatment of her severe to critical pulmonary arterial hypertension. She has been accepted by Dr. Alan Mata but we are currently awaiting a bed. 2. We will continue with IV diuresis with Lasix 40 mg IV twice daily. This is not to treat her pulmonary hypertension but to treat her symptoms of right-sided heart failure and to improve her lower extremity edema. 3. BMP in the morning. 4. Her blood pressure is well controlled. 5. Her LDL goal is less than 100. Her LDL is currently pending. 6. The patient remains on a Vapotherm, high flow mask at this time. She is maintaining her oxygen saturations. 7. Further recommendations were made pending the patient's response to treatment while we are awaiting a bed and transfer to [facility]. Thank you for the opportunity to help participate in the care of this patient. All recommendations and orders are per Dr. Sheehan.
[2021-05-10 10:10] LABS: Direct LDL Cholesterol 74.04 mg/dL (100-129)
[2021-05-10] MEDS: FUROSEMIDE 40MG/4ML VIAL 40 MG IV (10:48)
[2021-05-10 11:17] VITALS: BP 116/73; PULSE 92; RESP 18; TEMP 36.4; O2SAT 94
[2021-05-10 12:00] VITALS: PULSE 90
--- NOTE | 2021-05-10 13:05 | HMH.DCSUM ---
General - General Admission date:: 05/08/21 Discharge date: 05/10/21 HPI HPI: 65-year-old female was being seen in the podiatry clinic yesterday and a postop follow-up visit when she was noted to be lion in appearance with O2 sats in the 50s. She was wheelchaired to over to the ER for evaluation. Patient was in acute respiratory failure in the ER quickly placed on high flow nasal cannula which improved sats to the 90s. Additional work-up revealed findings of congestive heart failure. CT scan ruled out embolic disease but did show moderate sized pleural effusions. Patient was admitted with a diagnosis of acute congestive heart failure and require a further work-up. Patient herself reports noticing some increasing shortness of breath over the preceding 2 to 3 days otherwise she had been at her baseline level of health. She denies any history of pulmonary or cardiac problems. A family member has told the nurse the patient has been diagnosed with emphysema. Patient admits to smoking a pack of cigarettes a day for at least 20 years and possibly longer as she is not the best historian. As a child she grew up in a home where both parents smoked. She denies any personal history of lung infections. Prior surgeries are hysterectomy and a as well as her recent podiatry procedures. Hospital Course Hospital Course: Patient was admitted for CHF and diuresis. She has excellent response to IV Lasix. Cardiology was consulted and patient had echocardiogram and LHC with results below: Conclusion 1. Biatrial enlargement, normal left ventricular size, mild concentric left ventricular hypertrophy, visually estimated ejection fraction 55% with no regional wall motion abnormality, there is flattening of the interventricular septum during systole and diastole consistent with pressure and volume overload on right ventricle. 2. Moderately enlarged right ventricle with normal contractility. 3. Trace mitral and mild tricuspid regurgitation, calculated right ventricular systolic pressure is 85 mmHg. 4. No significant pericardial effusion noted. 5. Inferior vena cava is poorly visualized. ANGIOGRAPHIC RESULTS The left main artery Normal The left anterior descending artery Normal The circumflex artery Nondominant normal The right coronary artery Large dominant normal The ALMARAZ ventriculogram reveals Small ventricle hyperdynamic at 70% The left ventricular end-diastolic pressure 15 mmHg Right atrial pressure 18 mmHg Right ventricular 95/20 mmHg Pulmonary pressure 95/45 mmHg Pulmonary occlusion pressure 10 mmHg Right atrial saturation 65% Pulmonary artery saturation 63% Femoral artery saturation 86% on high flow oxygen IMPRESSION Normal coronary arteries Hyperdynamic ventricle Severe to critical pulmonary artery hypertension No evidence of intracardiopulmonary shunt Unable to accurately assess [place] cardiac output due to heavy sedation required for procedure and high flow oxygen. Patient was highly combative and had significant difficulty lying supine. Transfer was sought for more specialized care for patient's Primary Pulmonary Hypertension. Patient was accepted in transfer to . She continues to require HF oxygen at the time of transfer Objective Vital signs: Temp Pulse Resp BP Pulse Ox 97.6 F 92 H 18 116/73 94 L 05/10/21 11:17 05/10/21 11:17 05/10/21 11:17 05/10/21 11:17 05/10/21 11:17 Results Labs on day of discharge: Labs from last 24 hours 05/10/21 05/10/21 05/10/21 07:50 07:50 07:50 WBC 10.5 RBC 5.67 H Hgb 15.5 Hct 51.8 H MCV 91.3 MCH 27.3 MCHC 29.9 L RDW 21.4 H Plt Count 157 MPV 9.2 Neut % (Auto) 86.4 H Lymph % (Auto) 7.1 L [place] % (Auto) 4.4 Eos % (Auto) 1.6 Baso % (Auto) 0.6 Neut # (Auto) 9.1 H Lymph # (Auto) 0.7 [place] # (Auto) 0.5 Eos # (Auto) 0.2 Baso # (Auto) 0.1 Total Counted Neutrophils % (Manual) Lymphocytes % (Manual) Monocytes % (Manual) Platelet Estimate ABG O2 Sat (Measured) POC VBG O2 Sat (Darryn) Sodium 133 L Potassium 3.6 Chloride 82 L Carbon Dioxide 50 H* Anion Gap 4.6 L BUN 13 Creatinine 0.70 Estimated Creat Clear 75 Estimated GFR 85 Est GFR ( Amer) 102 Glucose 132 H Calcium 7.5 L Total Bilirubin 0.8 AST 30 ALT 25 Alkaline Phosphatase 89 Total Protein 6.0 L Albumin 3.1 L Globulin 2.9 Albumin/Globulin Ratio 1.1 Triglycerides 90 Cholesterol 145 LDL Cholesterol Direct 74.04 L VLDL Cholesterol 18 HDL Cholesterol 50 Cholesterol/HDL Ratio 2.9 05/09/21 05/09/21 13:50 10:25 WBC RBC Hgb Hct MCV MCH MCHC RDW Plt Count MPV Neut % (Auto) Lymph % (Auto) [place] % (Auto) Eos % (Auto) Baso % (Auto) Neut # (Auto) Lymph # (Auto) [place] # (Auto) Eos # (Auto) Baso # (Auto) Total Counted 100 Neutrophils % (Manual) 93 H Lymphocytes % (Manual) 3 L Monocytes % (Manual) 4 Platelet Estimate Normal ABG O2 Sat (Measured) 63.0 L POC VBG O2 Sat (Darryn) 65.0 L Sodium Potassium Chloride Carbon Dioxide Anion Gap BUN Creatinine Estimated Creat Clear Estimated GFR Est GFR ( Amer) Glucose Calcium Total Bilirubin AST ALT Alkaline Phosphatase Total Protein Albumin Globulin Albumin/Globulin Ratio Triglycerides Cholesterol LDL Cholesterol Direct VLDL Cholesterol HDL Cholesterol Cholesterol/HDL Ratio DS: Diagnosis - Discharge Diagnosis (1) Pulmonary arterial hypertension Status: Acute (2) SOB (shortness of breath) Status: Acute (3) Right heart failure Status: Acute (4) Acute respiratory failure with hypoxia Status: Acute (5) Elevated troponin Status: Acute (6) Lymphedema of both lower extremities Status: Acute (7) Open wound of both lower extremities Status: Acute Discharge Plan - Patient Discharge Instructions ACTIVITY: Continue current activity DIET: continue same diet Patient Instructions: DI for Shortness of Breath - Follow up Plan Disposition: Xfer Short-Term Hosp Condition at discharge:: Stable Home Medications: Home Medications Medication Instructions Recorded Confirmed Type cetirizine 10 mg capsule 10 mg PO DAILYP PRN 04/10/21 05/09/21 History fluticasone propionate 50 2 spray INTRANASAL DAILY 04/10/21 05/09/21 History mcg/actuation nasal spray,suspension levoFLOXacin [Levofloxacin 750MG 750 mg PO DAILY 05/08/21 05/09/21 History Tablet*] Prescriptions/Medication Reconciliation: Continued fluticasone propionate 50 mcg/actuation nasal spray,suspension 2 spray INTRANASAL DAILY cetirizine 10 mg capsule 10 mg PO DAILYP PRN PRN Reason: allergies levoFLOXacin [Levofloxacin 750MG Tablet*] 750 mg PO DAILY - Problem Reconciliation Problems Reviewed?: Yes
--- NOTE | 2021-05-10 13:47 | PC.NURSE ---
RESP CARE NOTE: Pt placed on non rebreather for transport to . Will continue to monitor SPO2.
[2021-05-10 14:11] LABS: Lymphocytes % 7 % (10-50); Monocytes % 7 % (2-9); Neutrophils % 86 % (42-76); Platelet Estimate Normal; Total Cells Counted 100
--- NOTE | 2021-05-10 14:39 | PC.NURSE ---
received call at 1224 with bed assignment for pt. [facility] 10th floor rm 139. report called to mine at 1246. attempted to arrange transport with [facility] at 1302. [place] [facility] unable to transport pt r/t being on vapotherm. ([facility] also unable to transport bipap). notified Dr Tamez at 1310. states ok for pt to be transported by helicopter. [facility] contacted at 1330. Flight accepted. [id number] has a 33 minute flight (including lift off). [facility] called back at 1334 states they cannot transport vapotherm. they were still going to be enroute and o2 settings would be adjusted so pt could be transported. RT at bedside at 1345, pt was placed on nrb sats 99%. (pt had CO2 this am of 50, so pt was downgraded to venti mask) [facility] arrived at 1410. pt sats were 93 on 50% venti. care transferred to [facility] at this time. 10th floor notified that pt was enroute to them at 1420.
--- NOTE | 2021-05-10 16:39 | PC.NURSE ---
0956 critical lab value CO2 [address] Tamez of lab value. new orders: wean vapotherm as tolerated and keep sats above 90%. if pt becomes drowsy place on bipap.
== END 2021-05-10 14:20 | disposition short-term general hospital (02) | DRG 286 ==
LOC: ER 17:03 → 2ND 19:44
PROVIDERS: Internal Medicine; Nurse Practitioner Family; Admitting Provider Family Medicine; Emergency Provider Student in an Organized Health Care Education/Training Program; PCP Family Medicine; Visit Provider Family Medicine
PROC: 4A023N8 Measurement of Cardiac Sampling and Pressure, Bilateral, Percutaneous Approach (ICD-10-PCS; principal; 2021-05-09 11:00)
DX: I50.31 Acute diastolic (congestive) heart failure (principal); J96.01 Acute respiratory failure with hypoxia; I27.20 Pulmonary hypertension, unspecified; R77.8 Other specified abnormalities of plasma proteins; I50.810 Right heart failure, unspecified; Z87.891 Personal history of nicotine dependence; S90.922A Unspecified superficial injury of left foot, initial encounter; S90.921A Unspecified superficial injury of right foot, initial encounter
CPT/HCPCS: 36415; 71045; 71275; 80053; 80061; 82803; 82810; 83880; 84484; 85007; 85025; 93005; 93306; 93460; 94760; 94761; 96374; 99152; 99153; C1725; C1769; C1894; C9803; J1644; Q9967; U0003; U0005